=== PATIENT | female | born 1955 | race Caucasian/White ===

== ENCOUNTER 2019-10-30 04:54 | Emergency (ER) | payer SELFPAY ==
[2019-10-30 04:55] VITALS: BP 129/66; PULSE 87; RESP 16; TEMP 36.5; O2SAT 96; BMI 24.4
--- NOTE | 2019-10-30 05:02 | EKG12_ITS ---
Test Reason : DYSRHYTHMIA Blood Pressure : / mmHG Vent. Rate : 086 BPM Atrial Rate : 086 BPM P-R Int : 170 ms QRS Dur : 090 ms QT Int : 396 ms P-R-T Axes : 063 016 045 degrees QTc Int : 473 ms Normal sinus rhythm Normal ECG Confirmed by AMARIS VALLES, QUINTON ([id number]), primer expeditor and drier RYANNE LLANES ([id number]) on 11/03/2019 11:10:52 AM Referred By: TYRELL Confirmed By:QUINTON GLEZ MD
--- NOTE | 2019-10-30 05:03 | ED.DCSUM_ITS ---
History of Present Illness Chief Complaint: Dizziness Informant: Patient Onset: Today Current Severity: Moderate Maximum Severity: Moderate Narrative: Patient states she got up to go to the restroom around 3 AM and felt the room was spinning. She laid down on the floor. She has been sweaty and nauseated. She denies chest pain or palpitations. She states she felt fine when she laid down. States that her mother did have it. Symptoms are worsened when she tries to turn her head. - Past Medical History (1) Hypertension Status: Chronic (2) High cholesterol Status: Chronic (3) GERD (gastroesophageal reflux disease) Status: Chronic (4) Diabetes Status: Chronic (5) Irritable bowel syndrome Status: Chronic (6) Anxiety Status: Chronic Past Medical History - Allergies and Home Meds Allergies/Adverse Reactions: Allergies cinnamon [Cinnamon] Allergy (Verified 10/30/19 04:58) Unknown egg Allergy (Verified 10/30/19 04:58) Unknown Primary Care Physician: Bree Hung PA [Primary Care Provider] - Prior records reviewed: Yes Smoking Status: Never smoker Review of Systems General: Denies: Chills, Fever Eyes: Denies: Visual changes - bilaterally ENT: Denies: Bilateral ear pain Cardiovascular: Denies: Chest pain, Palpitations Respiratory: Denies: Dyspnea, Cough Gastrointestinal: Reports: Nausea. Denies: Abdominal pain Genitourinary: Denies: Dysuria Musculoskeletal: Denies: Swelling, Extremity Pain Neurological: Denies: Headache, Parasthesia Hematologic: Denies: Easy bruising, Easy bleeding Allergy: Denies: Uticaria Physical Exam Vital Signs/Narrative: Vital Signs Temp Pulse Resp BP Pulse Ox 10/30/19 04:55 97.7 F L 87 16 129/66 H 96 Inital Vital Signs reviewed: Yes General: Well nourished, Well developed Head: Normocephalic ENT: Moist mucous membranes Neck: Supple Cardiovascular: Regular rate, Regular rhythm Respiratory: No distress, CTA bilaterally Abdomen: Soft, Nontender Skin: Normal color Neurological: Alert, Oriented x3, - - No focal neurologic deficits. Psychological: Normal affect Diagnostic/Tx/Re-eval Laboratory Results 10/30/19 10/30/19 05:05 05:05 WBC 10.9 RBC 4.88 Hgb 14.9 Hct 44.0 MCV 90.2 MCH 30.5 MCHC 33.9 RDW Std Deviation 38.9 RDW Coeff of Cole 11.9 Plt Count 227 MPV 9.2 Immature Gran % (Auto) 0.400 Neut % (Auto) 79.2 H Lymph % (Auto) 11.2 L Limestone % (Auto) 7.8 Eos % (Auto) 1.2 Baso % (Auto) 0.2 Absolute Neuts (auto) 8.6 H Absolute Lymphs (auto) 1.22 Nucleated RBC % 0 Sodium 136 Potassium 2.9 L Chloride 100 Carbon Dioxide 30.0 Anion Gap 6 BUN 14 Creatinine 0.71 Estim Creat Clear Calc 78.87 Est GFR (MDRD) Af Amer 106 Est GFR (MDRD) Non-Af 88 BUN/Creatinine Ratio 19.7 Glucose 227 H Calcium 9.1 - EKG Initial EKG Interpretation: Sinus Rhythm - Sinus at 86 with no acute ischemia. - Medical Decision Making Clinically the patient has peripheral vertigo. She is given Zofran, IV fluids, and p.o. Antivert. On repeat evaluation she is feeling improved. We were able to gradually sit the bed upright. She is able to get up to bedside commode without difficulty. She will be given prescriptions for Zofran, Antivert, and a few days of potassium as her potassium is slightly low at 2.9. She is also given instructions on Sanju maneuvers if needed at home. ED Disposition - Plan for ED Patient: Disposition: Home or Assisted Living Diagnosis: Vertigo Instructions: ED BPV Vertigo Prescriptions: Meclizine HCl [Antivert] 25 mg PO 4X/DAY PRN PRN #20 tab PRN Reason: Dizziness Transmission Status: Pending to [id number] Potassium Chloride [K-Dur] 20 meq PO BID #6 tab Transmission Status: Pending to [facility] Ondansetron [Zofran Odt] 4 mg PO Q8H PRN PRN #10 tab PRN Reason: Nausea Transmission Status: Pending to [facility] Referrals: Bree Hung PA [Primary Care Provider] - 3-5 Days if not improving
[2019-10-30 05:08] LABS: Absolute Lymphocyte Count 1.22 X10^3/uL (0.83-4.51); Absolute Neutrophil Count 8.6 X10^3/uL (2.0-7.7); Basophil# 0.02 X10^3/uL; Basophil% 0.2 % (0-1); Eosinophil# 0.13 X10^3/uL; Eosinophils% 1.2 % (0-5); Hemoglobin 14.9 g/dL (12.0-15.0); Lymphocyte # 1.22 X10^3/ul (4.0); Lymphocyte % 11.2 % (19-41); Mean Corp Hgb Conc 33.9 g/dL (32-36); Mean Corpuscular Hgb 30.5 pg (27.0-32.0); Mean Corpuscular Volume 90.2 fL (81-99); Mean Platelet Vol. 9.2 fl (6.2-12.0); Monocyte# 0.85 X10^3/uL; Monocyte% 7.8 % (0-10); NRBC Flagged by Analyzer 0 % (0-5); Neutrophil % 79.2 % (47-70); Platelet Count 227 K/mm3 (150-450); RBC Distribution Width CV 11.9 % (11.6-14.6); RBC Distribution Width SD 38.9 fl (35.1-43.9); Red Blood Count 4.88 M/mm3 (4.2-5.4); White Blood Count 10.9 K/mm3 (4.4-11.0)
[2019-10-30] MEDS: 0.9% Normal Saline 1,000 ML 150 ML IV (05:09)
[2019-10-30] MEDS: Ondansetron 4 MG/2 ML Vial IV (05:09)
[2019-10-30] MEDS: Meclizine HCl 25 MG Tablet PO (05:12)
[2019-10-30 05:25] LABS: Anion Gap 6 (5-15); BUN 14 mg/dL (7-18); BUN/Creat Ratio 19.7 RATIO (10-20); Calcium,Total 9.1 mg/dL (8.5-10.1); Chloride 100 mmol/L (98-107); Creatinine, Serum 0.71 mg/dL (0.55-1.02); EST Glomerular Filtration Rate 88 mL/min (>60); Est Glom Filt Rate - Afr Amer 106 mL/min (>60); Estimated Creatinine Clearance 78.87 ml/min; Glucose 227 mg/dL (74-106); Potassium 2.9 mmol/L (3.5-5.1); Sodium Level 136 mmol/L (136-145)
[2019-10-30 07:09] VITALS: BP 102/59; PULSE 76; RESP 19; O2SAT 99
[2019-10-30 07:48] VITALS: BP 106/65
== END 2019-10-30 07:49 | disposition home or self-care (01) ==
PROVIDERS: Emergency Provider Emergency Medicine; PCP Physician Assistant
DX: R42 Dizziness and giddiness (principal); E11.9 Type 2 diabetes mellitus without complications; I10 Essential (primary) hypertension; K21.9 Gastro-esophageal reflux disease without esophagitis; E78.00 Pure hypercholesterolemia, unspecified; Z79.84 Long term (current) use of oral hypoglycemic drugs
CPT/HCPCS: 80048; 85025; 93005; 96361; 96374; 99285; J7030; A4216; J2405

== ENCOUNTER 2022-07-21 16:11 | Emergency (ER) | payer MEDICARE, SELFPAY ==
[2022-07-21 16:11] VITALS: BP 166/92; PULSE 92; RESP 16; TEMP 36.6; O2SAT 96; BMI 24.1
--- NOTE | 2022-07-21 16:32 | EKG12_ITS ---
Test Reason : ANXIETY Blood Pressure : / mmHG Vent. Rate : 073 BPM Atrial Rate : 073 BPM P-R Int : 156 ms QRS Dur : 096 ms QT Int : 388 ms P-R-T Axes : 039 -12 025 degrees QTc Int : 427 ms Normal sinus rhythm with sinus arrhythmia Incomplete right bundle branch block Borderline ECG Confirmed by GEMINI VALLES, OVIDIO ([id number]), television news video editor RYANNE LLANES ([id number]) on 07/23/2022 9:47:23 AM Referred By: Confirmed By:GINETTE SINGLETARY MD
--- NOTE | 2022-07-21 16:37 | EX.ED.DYSGE1 ---
HPI <JOSE Patterson - Last Filed: 07/21/22 17:11> History of Present Illness Chief Complaint: Anxiety Narrative Narrative: 66-year-old female with past medical history of anxiety presents with a few weeks of increased anxiety. She states a couple months ago she stopped all of her medications including Effexor for anxiety. She was weaned off from her doctor and has been taking [id number] supplements instead. She feels better and the dizziness she was having resolved but her anxiety has been increasing. She has had a lot of personal and professional stress. She has no suicidal or homicidal ideation. Last night she took a dose of Effexor that she still had on hand. She also reports having some heart fluttering or tightness. No chest pressure or pain. No shortness of breath. PFSH <JOSE Patterson - Last Filed: 07/21/22 17:11> PENDING SALE TO [facility] Home Medications Fish Oil 1,000 mg Capsule 2 tab PO DAILY 02/17/13 [History Last Taken Unknown] Venlafaxine Hcl 75 mg PO DAILY 02/17/13 [History Last Taken Unknown] ascorbic acid (vitamin C) 500 mg tablet (Vitamin C) 1,000 mg PO DAILY@0800 02/17/13 [History Last Taken Unknown] calcium carbonate 500 mg calcium (1,250 mg) tablet (Oyster Shell Calcium 500) 500 mg PO DAILY@0800 02/17/13 [History Last Taken Unknown] ergocalciferol (vitamin D2) 10 mcg (400 unit) tablet 1 unit PO DAILY 02/17/13 [History Last Taken Unknown] hydrochlorothiazide 25 mg tablet 25 mg PO DAILY 02/17/13 [History Last Taken Unknown] lisinopril 20 mg tablet 10 mg PO DAILY 02/17/13 [History Last Taken 04/23/13 07:30] multivitamin with folic acid 400 mcg tablet (Thera) 1 tab PO DAILY 02/17/13 [History Last Taken Unknown] omeprazole 20 mg capsule,delayed release 20 mg PO DAILY 02/17/13 [History Last Taken 04/23/13 07:30] potassium 99 mg tablet 99 mg PO DAILY 02/17/13 [History Last Taken Unknown] pravastatin 20 mg tablet 40 mg PO DAILY 02/17/13 [History Last Taken Unknown] meclizine 25 mg tablet 25 mg PO 4X/DAY PRN PRN Dizziness #20 tabs 10/30/19 [Rx Last Taken Unknown] metformin 500 mg tablet 500 mg PO BIDCM 10/30/19 [History Last Taken Unknown] ondansetron 4 mg disintegrating tablet 4 mg PO Q8H PRN PRN Nausea #10 tabs 10/30/19 [Rx Last Taken Unknown] potassium chloride 20 mEq tablet,extended release(part/cryst) 20 meq PO BID #6 tabs 10/30/19 [Rx Last Taken Unknown] Social History Smoking Status: Never smoker ROS <JOSE Patterson - Last Filed: 07/21/22 17:11> ROS ED ROS Narrative Constitutional: Negative for fever, chills, malaise. CVS: Negative for chest pain, syncope. Respiratory: Negative for shortness of breath. GI: Negative for abdominal pain, nausea, vomiting. Neuro: Negative for headache. EXAM <JOSE Patterson - Last Filed: 07/21/22 17:11> Physical Exam Narrative Exam Narrative: CONST: Patient sitting in no acute distress. EYES: Normal inspection. ENT: Normal inspection, moist mucous membranes. No carotid bruits. NECK: Normal inspection. RESP: No respiratory distress, CTAB. CVS: Regular rate and rhythm, no murmur, no gallop. SKIN: Color normal, no rash, warm, dry, intact. EXTREMITIES: Normal appearance, no pedal edema. NEURO: Oriented x4. PSYCH: Patient mildly anxious. Const Vital Signs: 07/21/22 16:11 Temperature 97.9 F Temperature Source Temporal Pulse Rate 92 Respiratory Rate 16 Blood Pressure 166/92 H Blood Pressure Mean 116 Pulse Ox 96 Oxygen Delivery Method Room Air <Phuc Deras MD - Last Filed: 07/21/22 18:07> Physical Exam Const Vital Signs: 07/21/22 16:11 Temperature 97.9 F Temperature Source Temporal Pulse Rate 92 Respiratory Rate 16 Blood Pressure 166/92 H Blood Pressure Mean 116 Pulse Ox 96 Oxygen Delivery Method Room Air MDM <JOSE Patterson - Last Filed: 07/21/22 17:11> MDM MDM Narrative Medical decision making narrative: History gathered: from patient and spouse Patient has been off of her Effexor for about a year but has had increased recent stressors and anxiety. She appears well and nontoxic. Mildly hypertensive with otherwise normal vital signs. Her exam is unremarkable. EKG is sinus rhythm at 73 bpm with no ectopy or ischemic changes. Patient was treated with one-time dose of oral Ativan with improvement. She has restarted Effexor and taken 2 doses and I told her it will take about 2 weeks to start having a noticeable effect. I provided a referral to a counseling center. I do not feel she needs further emergent work-up with labs etc. but can follow-up with her primary care doctor. She is not suicidal or homicidal so does not require psychiatric admission. She has good outside support. She was agreeable with this plan and discharged in stable condition. Differential: Anxiety, dysrhythmia EKG Initial EKG: Attestation: I personally reviewed and interpreted this EKG as follows: Comments: ED attending interpretation of EKG is normal sinus rhythm with sinus arrhythmia at 73 bpm, no acute ischemic changes or ectopy <Phuc Deras MD - Last Filed: 07/21/22 18:07> [facility] MDM Narrative Medical decision making narrative: History gathered: from patient and spouse Patient has been off of her Effexor for about a year but has had increased recent stressors and anxiety. She appears well and nontoxic. Mildly hypertensive with otherwise normal vital signs. Her exam is unremarkable. EKG is sinus rhythm at 73 bpm with no ectopy or ischemic changes. Patient was treated with one-time dose of oral Ativan with improvement. She has restarted Effexor and taken 2 doses and I told her it will take about 2 weeks to start having a noticeable effect. I provided a referral to a counseling center. I do not feel she needs further emergent work-up with labs etc. but can follow-up with her primary care doctor. She is not suicidal or homicidal so does not require psychiatric admission. She has good outside support. She was agreeable with this plan and discharged in stable condition. Differential: Anxiety, dysrhythmia I have personally performed a face to face assessment of the patient and have reviewed the TIFFANI Note. I performed a substantive portion of the visit including all aspects of the following. My burr findings include: History is anxiety, not taking Effexor times months secondary to wanting to be homeopathic natural. Exam is afebrile. Vital signs noted. Regular rate and rhythm. Lungs clear to auscultation bilaterally. No suicidal ideation, homicidal ideation, or active hallucination. Medical Decision Making patient states she may have felt her heart racing. EKG was obtained and interpreted by myself as normal sinus rhythm at 73 bpm without ectopy or acute ST changes. No STEMI. She was given 1 dose of benzodiazepine here in the emergency department and told to continue her Effexor, noting that it may take her 2 weeks to get back to its full efficacy. She was referred to the counseling center, or she can see her own counselor. Disposition is discharged home in stable condition. Other additions or changes: [None] Discharge Plan Triage Chief Complaint: Anxiety ED Midlevel Provider: Sabina Watson ED Provider: Phuc Deras Dx/Rx/DC Orders Clinical Impression: Anxiety Instructions: Anxiety Disorders Tx Prescriptions: No Action lisinopril 20 MG tablet 10 mg PO DAILY ergocalciferol (vitamin D2) 400 UNIT tablet 1 unit PO DAILY potassium 99 MG tablet 99 mg PO DAILY calcium carbonate [Oyster Shell Calcium 500] 500 MG tablet 500 mg PO DAILY@0800 ascorbic acid (vitamin C) [Vitamin C] 500 MG tablet 1,000 mg PO DAILY@0800 omeprazole 20 MG capsule 20 mg PO DAILY pravastatin 20 MG tablet 40 mg PO DAILY hydrochlorothiazide 25 MG tablet 25 mg PO DAILY multivitamin with folic acid [Thera] 1 TABLET tablet 1 tab PO DAILY Fish Oil 1,000 mg Capsule 2 tab PO DAILY Venlafaxine Hcl 75 MG tablet 75 mg PO DAILY metformin 500 MG tablet 500 mg PO BIDCM ondansetron 4 MG tablet 4 mg PO Q8H PRN PRN (Reason: Nausea) Qty: 10 0RF meclizine 25 MG tablet 25 mg PO 4X/DAY PRN PRN (Reason: Dizziness) Qty: 20 0RF potassium chloride 20 MEQ tablet 20 meq PO BID Qty: 6 0RF Primary Care Provider: Bree Hung Referrals: Counseling,Center [Group of Physicians] - Bree Hung PA [Primary Care Provider] - Activity Restrictions/Additional Instructions: For your anxiety I recommend restarting the Effexor and following up with the counseling center. Your Effexor can take 2 weeks to start having an effect. Please follow-up with your primary care doctor as well. Disposition Disposition: Home, Self Care Discharge Date/Time: 07/21/22 17:13
[2022-07-21] MEDS: LORazepam 1 MG Tablet PO (16:53)
== END 2022-07-21 17:13 | disposition home or self-care (01) ==
PROVIDERS: Emergency Provider Emergency Medicine; PCP Physician Assistant; Visit Provider Emergency Medicine
DX: F41.9 Anxiety disorder, unspecified (principal)
CPT/HCPCS: 93005; 99282

== ENCOUNTER → 2023-03-05 | Outpatient (CLI) | payer MEDICARE, SELFPAY ==
--- NOTE | 2023-03-05 07:28 | US_ITS ---
STUDY: ABDOMINAL ULTRASOUND - RIGHT UPPER QUADRANT REASON FOR VISIT: Female, 67 years old ELEVATED LIVER enzymes TECHNIQUE: Ultrasound evaluation of the right upper quadrant was performed with real-time and static howard-scale imaging. TECHNICAL QUALITY: Adequate. COMPARISON: None. FINDINGS: Liver: The liver measures 12.9 cm. There is normal echogenicity of the liver. The bile ducts are within normal limits. There is hepatic color flow. The direction of portal flow is hepatopetal. There is no demonstrated mass lesion. Gallbladder: Normal distended gallbladder. The gallbladder wall measures 1.3 mm. There is a negative sonographic Prajapati''s sign. There is no pericholecystic fluid. There are no gallstones. Common Bile Duct (C.B.D.): The common bile duct measures 2.1 mm. Pancreas: Normal size of the head, body and tail of the pancreas. There is increased echogenicity of the pancreas. There is no demonstrated pancreatic mass or cyst. Right Kidney: Normal size of the right kidney. The right kidney measures 10.9 cm x 5.5 cm x 4.8 cm. Normal renal cortex. The right cortex measures 1.4 cm. There is no demonstrated renal mass or cyst. There is no right hydronephrosis. US/Abdomen Limited IMPRESSION: Normal right upper quadrant ultrasound examination. Electronically Signed: Manuel Lilly MD at 14:32 EDT ,
[2023-03-05 09:29] LABS: Cholesterol 213 mg/dL (200); High Density Lipoprotein 62 mg/dL; Triglycerides 141 mg/dL; Very Low Density Lipoprotein 28 mg/dL (5-40)
== END | disposition home or self-care (01) ==
PROVIDERS: PCP Physician Assistant; Referring Provider Physician Assistant; Visit Provider Physician Assistant
DX: R74.8 Abnormal levels of other serum enzymes (principal); Z13.220 Encounter for screening for lipoid disorders
CPT/HCPCS: 36415; 76705; 80061

== ENCOUNTER 2023-05-03 12:21 | Outpatient (CLI) | payer MEDICARE, SELFPAY ==
--- NOTE | 2023-05-03 | IMM_PTH ---
PATHOLOGY RESULTS PATIENT: BRICE DELEON LOC: [facility] U#:[id number] AGE/SX: 67/F ROOM: RE05/03/[address]: Dr. Paulina Cooper MD : [id number] BED: DIS: 05/03/2023 SPEC #: [id number] RECD: 05/08/23 14:40 STATUS: ELAINE REQ #: [id number] ADRIÁN: 05/03/23 00:[address]: Paulina Cooper DEPT: IMMUNOHISTOCHEMISTRY RECD BY: Feli Zaragoza ENTERED: 05/08/23 14:41 SP TYPE: IMMUNO OTHR DR: JOSE Ahn Tissues: Right breast, NOS Procedures: SMA (add) CALPONIN-1 (add) CK8 (add) P53 (add) Pankeratin (initial) P40 (add) PHYSICIAN & INSTITUTION [place] [id number] SPECIMEN INFORMATION: Tissue Source: Right breast Clinical Info: Abnormal mammogram, right breast mass Specimen Number: [id number] CPT code: 10523, 67771 x5 METHODOLOGY: Deparaffinized sections of prefer/formalin-fixed tissue or PAP/DQ stained slides are incubated with monoclonal/polyclonal antibodies/oligonucleotide probes. Localization is made via biotin free immunoperoxidase method. Appropriate controls are performed and reacted as expected. Results on target cell population are indicated in the following table: RESULTS: ANTIBODY / CLONE RESULT AE1-3 (AE1/AE3/PCK26) positive CK8 ([id number]) positive Calponin-1 (JW727O) positive Actin (1A4) positive P40 (BC28) positive P53 (DO-7) positive, wild type pattern, dim These tests were developed and their performance characteristics determined by [facility]. They may not have been cleared or approved by the U.[place]. Food and Drug Administration. The FDA has determined that such clearance or approval is not necessary. The above immunohistochemical/dualISH markers are ordered and reviewed by the Pathologist. INTERPRETATION: Right breast at 8 o'clock, ultrasound-guided core biopsy: Consistent with fragments of intraductal papilloma. AM:jaleel 05/09/2023
--- NOTE | 2023-05-03 12:31 | US_ITS ---
ULTRASOUND GUIDED CORE BIOPSY REASON FOR EXAM: Female, 67 years old. Right breast mass PERTINENT HISTORY: Right breast mass. COMPARISON: None. TECHNIQUE: (All elements of maximal sterile barrier technique followed, including US elements as applicable) Under direct sonographic guidance, the surgeon performed core biopsies of the nodule at the 8:00 position of the breast at 3 cm from the nipple. US/US Breast Biopsy 1st Lesion IMPRESSION: Ultrasound guided core biopsy of a mass in the RIGHT breast at 8:00 position in the breast at 3 cm from nipple. without complication. Electronically Signed: Manuel Lilly MD at 9:51 EST ,
--- OUTSIDE RECORDS SUMMARY | 2023-05-03 12:33 | XMS RPT_ITS | CCD ---
Author Name Unknown Address [address] [facility] [address] [place] [address] Organization [facility] Care Team Providers Care Econometrician Name Role Phone Unavailable Primary Care Provider UnavailBree Schneider Primary Care Provider Barron Martinze MD Unavailable [phone] BARRON MARTINEZ Attending Unavailable BARRON MARTINEZ Referring Unavailable HUNG, BREE J Primary Care Unavailable BARRON MARTINEZ Referring Unavailable HUNG, BREE J Primary Care Unavailable BARRON MARTINEZ Attending Unavailable HUNG, BREE J Primary Care Unavailable HUNG, BREE J Primary Care Unavailable HUNG, BREE J Consulting Unavailable HUNG, BREE J Attending Unavailable HUNG, BREE J Admitting Unavailable PROVIDER, UNKNOWN Consulting Unavailable HUNG, BREE J Primary Care Unavailable HUNG, BREE J Consulting Unavailable HUNG, BREE J Attending Unavailable HUNG, BREE J Admitting Unavailable PROVIDER, UNKNOWN Consulting Unavailable Abhilash GOODWIN, Bree J Unavailable Abhilash GOODWIN Bree J Unavailable Hematology Provider Unavailable Unavailable Omayra VALLES, Dr. Saman Beltrán Unavailable General Surgery Provider Unavailable Unavail able Orthopedic Provider Unavailable Unavailable [facility], . [facility] office Unavailable Dr. Ros Marcelo OD Unavailable [phone] [facility] Unavailable [phone] Ozzie Ham MD Unavailable Unavailable Dr. Iraj Mistry MD Unavailable STEVE Frit Burner, Nutrition Counseling Unavailable Anayeli Chanel MD Unavailable Reid VALLES, Abdirahman Beltrán Unavailable Breezy VALLES, Gene Small Unavailable Akshat GOODWIN, Mehnaz Edwards Unavailable [phone] Tommy INSTRUMENTAL MUSICIAN, Mirella Unavailable Cb ESPANA, Asmita Unavailable Ariadna ESPANA, Vannesa L Unavailable Unavail able Vess INSTRUMENTAL MUSICIAN, Nemaihe L Unavailable Unavailable Louie INSTRUMENTAL MUSICIAN, Shelly E Unavailable Unavailable Sylvia ESPANA, Sigrid Y Unavailable Unavailable Rebecca INSTRUMENTAL MUSICIAN, Anayeli M Unavailable Unavailab le Clay INSTRUMENTAL MUSICIAN, Torri Dove Unavailable Unavailab le Wengerd INSTRUMENTAL MUSICIAN, Camille Unavailable Unavailabl e Avoca INSTRUMENTAL MUSICIAN, Danni N Unavailable Unavaila ble Cory INSTRUMENTAL MUSICIAN, Leigh Unavailable Unavailable Shorty ESPANA, Mehnaz Small Unavailable Unavaila ble Mutersbaugh INSTRUMENTAL MUSICIAN, Mitzy K Unavailable Unavai kelsie Davis, Lucia Unavailable Unavailable Gogoi (scribe), Hemanta Unavailable Unavaila ble Vanaman, April A Unavailable Unavailable Ravindra INSTRUMENTAL MUSICIAN, Kylie Unavailable Unavailable Ariadna GOODWIN, Chuck Hill Unavailable Steve NASCIMENTO, Kylie Unavailable Unavailable Matt INSTRUMENTAL MUSICIAN, Burton Unavailable Unavailable Unavailable Unavailable Allergies Allergy Classification Reported Allergen(s) Allergy Type Date of Onset Reaction(s) Facility (2 sources) [facility], [facility].; [facility], [facility]. (2 sources) egg [facility], [facility].; [facility], [facility]. Medications Current Medications Medication Drug Class(es) Dates Sig (Normalized) Sig (Original) Apple Cider Vinegar (4 sources) Completed/Discontinued Medications Medication Drug Class(es) Dates Sig (Normalized) Sig (Original) acetaminophen 500 mg / HYDROcodone bitartrate 5 mg oral tablet (2 sources) Opioid Agonist Start: 08-02-2010 End: 12-26-2010 albuterol 0.83 mg/ml inhalation solution (4 sources) beta2-Adrenergic Agonist Start: 11-22-2010 End: 12-26-2010 Problems Problem Classification Problem Date Documented Da te Episodic/Chronic Acute bronchitis (10 sources) Acute bronchitis; Translations: [Acute bronchitis, unspecified] 02-06-2019 Episodic Administrative/social admission (12 sources) Repeated prescription; Translations: [Encounter for issue of repeat prescription] 08-14-2018 Episodic Allergic reactions (4 sources) Contact dermatitis and other eczema, unspecified cause 06-18-2014 Episodic Anxiety disorders (20 sources) Anxiety; Translations: [Anxiety disorder, unspecified] 04-12-2023 Chronic Chronic obstructive pulmonary disease and bronchiectasis (10 sources) Bronchitis; Translations: [Bronchitis, not specified as acute or chronic] 03-01-2017 Episodic Diabetes mellitus with complications (20 sources) Type 2 diabetes mellitus; Translations: [Type 2 diabetes mellitus with other specified complication] 04-12-2023 Chronic Diabetes mellitus without complication (8 sources) Other abnormal glucose 01-24-2013 Episodic Disorders of lipid metabolism (20 sources) Hyperlipidemia; Translations: [Hyperlipidemia, unspecified] 04-12-2023 Chronic Disorders of teeth and jaw (2 sources) Acute apical periodontitis of pulpal origin 04-01-2013 Episodic Esophageal disorders (20 sources) Gastroesophageal reflux disease without esophagitis; Translations: [Gastro-esophageal reflux disease without esophagitis] 04-12-2023 Chronic Esophageal disorders (2 sources) Esophagitis; Translations: [Esophagitis, unspecified] 03-31-2010 Episodic Essential hypertension (20 sources) Benign hypertension; Translations: [Essential (primary) hypertension] 04-12-2023 Chronic Headache; including migraine (4 sources) Tension-type headache; Translations: [Tension-type headache, unspecified, not intractable] 02-06-2019 Chronic Heart valve disorders (8 sources) Heart murmur; Translations: [Cardiac murmur, unspecified] 04-12-2023 Episodic Immunizations and screening for infectious disease (20 sources) Patient encounter status; Translations: [Encounter for screening for respiratory tuberculosis] 06-15-2015 Episodic Malaise and fatigue (4 sources) Fatigue; Translations: [Other fatigue] 04-12-2023 Episodic Other aftercare (16 sources) Long-term (current) use of other medications 06-18-2014 Episodic Other aftercare (4 sources) Removal of sutures done; Translations: [Encounter for removal of sutures] 10-15-2014 Episodic Other circulatory disease (4 sources) History of transient ischemic attack; Translations: [Personal history of transient ischemic attack (TIA), and cerebral infarction without residual deficits] 04-12-2023 Episodic Other connective tissue disease (14 sources) Fibromyalgia; Translations: [Fibromyalgia] 04-12-2023 Episodic Other connective tissue disease (8 sources) Trigger finger of right hand; Translations: [Trigger finger, unspecified finger] 08-14-2018 Episodic Other connective tissue disease (2 sources) Foot pain; Translations: [Pain in unspecified foot] 10-07-2012 Episodic Other diseases of veins and lymphatics (12 sources) Venous varices; Translations: [Varicose veins of other specified sites] 08-14-2018 Episodic Other ear and sense organ disorders (6 sources) Hearing loss; Translations: [Unspecified hearing loss, unspecified ear] 08-14-2018 Chronic Other gastrointestinal disorders (4 sources) Irritable bowel syndrome; Translations: [Irritable bowel syndrome without diarrhea] 04-12-2023 Chronic Other hematologic conditions (5 sources) Erythrocytosis; Translations: [Secondary polycythemia] 03-14-2023 Episodic Other hematologic conditions (1 source) Secondary polycythemia; Translations: [Erythrocytosis] Onset: Episodic Other liver diseases (20 sources) Elevated liver enzymes level; Translations: [Abnormal levels of other serum enzymes] 04-12-2023 Episodic Other lower respiratory disease (10 sources) Cough; Translations: [Cough] 06-18-2014 Episodic Other non-traumatic joint disorders (4 sources) Hip pain; Translations: [Pain in right hip] 08-14-2018 Episodic Other non-traumatic joint disorders (8 sources) Pain in unspecified knee; Translations: [Pain in joint, lower leg] 08-14-2018 Episodic Other nutritional; endocrine; and metabolic disorders (4 sources) Overweight in adulthood with body mass index of 25 or more but less than 30; Translations: [Body mass index (BMI) 26.0-26.9, adult] 08-14-2018 Episodic Other screening for suspected conditions (not mental disorders or infectious disease) (20 sources) Full blood count abnormal; Translations: [Other specified abnormal findings of blood chemistry] 04-12-2023 Episodic Other skin disorders (4 sources) Actinic keratosis; Translations: [Actinic keratosis] 02-06-2019 Episodic Other skin disorders (6 sources) Sebaceous cyst of skin; Translations: [Sebaceous cyst] 08-14-2018 Episodic Other skin disorders (4 sources) Skin lesion; Translations: [Disorder of the skin and subcutaneous tissue, unspecified] 08-14-2018 Episodic Other skin disorders (2 sources) Skin tag; Translations: [Other hypertrophic disorders of the skin] 07-22-2013 Episodic Other upper respiratory disease (2 sources) Bleeding from nose; Translations: [Epistaxis] 03-19-2011 Episodic Other upper respiratory infections (10 sources) Sinusitis; Translations: [Chronic sinusitis, unspecified] 06-20-2022 Chronic Other upper respiratory infections (20 sources) Acute pharyngitis; Translations: [Acute pharyngitis, unspecified] 06-18-2014 Episodic Residual codes; unclassified (4 sources) Postmenopausal state; Translations: [Asymptomatic menopausal state] 04-12-2023 Episodic Spondylosis; intervertebral disc disorders; other back problems (10 sources) Neck pain; Translations: [Cervicalgia] 02-15-2023 Episodic Unclassified (2 sources) 02-15-2023 Unclassified (2 sources) 02-15-2023 Unclassified (2 sources) 02-15-2023 Viral infection (4 sources) Viral disease; Translations: [Viral infection, unspecified] 02-06-2019 Episodic Results Test Name Value Interpretation Reference Range Facil ity Vital Signs Date Time Vital Sign Value Performing Clinician Facility 04-12-2023 13:39-0500 Body height 170.18 cm Anayeli Fernandez LPN [employer] 04-12-2023 13:39-0500 Body mass index (BMI) [Ratio] 24.9 kg/m2 Anayeli Fernandez LPN [employer], [email or web address] 04-12-2023 13:39-0500 Body surface area Derived from formula 1.83 m2 Anayeli Fernandez LPN [employer], [email or web address]. 04-12-2023 13:39-0500 Body weight 72.12 kg Anayeli Fernandez LPN [employer], [email or web address].; [employer], [email or web address]. 04-12-2023 13:39-0500 Diastolic blood pressure 75 mm[Hg] [facility].; [employer] [facility]. 04-12-2023 13:39-0500 Heart rate 69 /min Anayeli Fernandez LPN [facility].; [employer] [facility]. 04-12-2023 13:39-0500 Systolic blood pressure 131 mm[Hg] Anayeli benjmain INSTRUMENTAL MUSICIAN [facility].; [employer] [facility]. 02-15-2023 09:09-0400 Body height 170.18 cm Bree J Hung PA-C Work Phone: [employer] 02-15-2023 09:09-0400 Body mass index (BMI) [Ratio] 25.22 kg/m2 Bree J Hung PA-C Work Phone: [employer].; [employer] [facility]. 02-15-2023 09:09-0400 Body surface area Derived from formula 1.84 m2 Bree J Hung PA-C Work Phone: [employer].; [employer] [facility]. 02-15-2023 09:09-0400 Body weight 73.03 kg Bree J Hung PA-C Work Phone: [employer].; [employer] [facility]. 02-15-2023 09:09-0400 Diastolic blood pressure 76 mm[Hg] Bree J Hung PA-C Work Phone: [employer].; [employer] [facility]. 02-15-2023 09:09-0400 Heart rate 66 /min Bree J Hung PA-C Work Phone: [employer].; [employer] [facility]. 02-15-2023 09:09-0400 Systolic blood pressure 151 mm[Hg] Bree J Hung PA-C Work Phone: [employer] 11-05-2022 12:59-0400 Body height 170.18 cm Anayeli Dempseylabach INSTRUMENTAL MUSICIAN [facility], [facility].; [facility], [facility]. 11-05-2022 12:59-0400 Body mass index (BMI) [Ratio] 24.43 kg/m2 Anayeli Dempseylabach [facility], [facility].; [facility], [facility]. 11-05-2022 12:59-0400 Body surface area Derived from formula 1.82 m2 Anayeli Shi Rebecca [facility], [facility].; [facility], [facility]. 11-05-2022 12:59-0400 Body temperature 99.9 [degF] Anayeli Shi Rebecca [facility], [facility].; [facility], [facility]. 11-05-2022 12:59-0400 Body weight 70.76 kg Anayeli Shi Rebecca [facility], [facility].; [facility], [facility]. 11-05-2022 12:59-0400 Diastolic blood pressure 76 mm[Hg] Anayeli Shi Rebecca [facility], [facility].; [place] [employer] [facility], [facility]. 11-05-2022 12:59-0400 Heart rate 101 /min Anayeli Dempseylabach [facility], [facility].; [facility], [facility]. 11-05-2022 12:59-0400 Inhaled oxygen concentration 20 % Anayeli Shi Rebecca [facility], [facility].; [employer] [facility], [facility]. 11-05-2022 12:59-0400 SaO2% (BldA) [Mass fraction] 98 % Anayeli Shi Rebecca [facility], [facility].; [employer] [facility]. 11-05-2022 12:59-0400 Systolic blood pressure 149 mm[Hg] Anayeli Shi Amyac h [facility], [facility].; [employer] [facility], [facility]. 07-25-2022 13:38-0400 Body height 170.18 cm Kylie Wilson MA [facility], [facility].; [employer] [place] [employer] [facility]. 07-25-2022 13:38-0400 Body mass index (BMI) [Ratio] 23.81 kg/m2 Kylie [facility].; [employer] 07-25-2022 13:38-0400 Body surface area Derived from formula 1.8 m2 Kylie Wilson MA [facility], Inc.; [employer] [facility], Inc[facility] 07-25-2022 13:38-0400 Body weight 68.95 kg Kylie Wilson MA [facility], [employer].; [employer] 07-25-2022 13:38-0400 Diastolic blood pressure 77 mm[Hg] Kylie Wilson MA [facility], [facility].; [employer] [facility], Inc[facility] 07-25-2022 13:38-0400 Heart rate 99 /min Kylie Wilson MA [facility], [facility].; [employer] [facility], Inc[facility] 07-25-2022 13:38-0400 Systolic blood pressure 134 mm[Hg] Kylie Wilson MA [facility], [facility].; [employer] [facility], Inc[facility] 06-20-2022 09:05-0500 Body height 170.18 cm Torri Williamson INSTRUMENTAL MUSICIAN [facility], [employer].; [employer] 06-20-2022 09:05-0500 Body mass index (BMI) [Ratio] 24.28 kg/m2 [facility] Clay INSTRUMENTAL MUSICIAN [facility], [facility].; [employer] 06-20-2022 09:05-0500 Body surface area Derived from formula 1.81 m2 Conchita Stuckey INSTRUMENTAL MUSICIAN [facility], Inc.; [employer] 06-20-2022 09:05-0500 Body temperature 98.1 [degF] Conchita Stuckey INSTRUMENTAL MUSICIAN [facility], Inc.; [employer] 06-20-2022 09:05-0500 Body weight 70.31 kg [facility] Clay INSTRUMENTAL MUSICIAN [employer] [place] [employer] [facility], Inc.; [employer] 06-20-2022 09:05-0500 Diastolic blood pressure 82 mm[Hg] Torri Williamson LPN [employer] [facility] [employer] [facility], [employer].; [employer] 06-20-2022 09:05-0500 Heart rate 97 /min Conchita Clay INSTRUMENTAL MUSICIAN [facility], [employer].; [employer], [facility]. 06-20-2022 09:05-0500 Inhaled oxygen concentration 20 % Torri Williamson [facility], [facility].; [employer] [facility], [facility]. 06-20-2022 09:05-0500 SaO2% (BldA) [Mass fraction] 99 % Torri Williamson [facility], Inc.; [employer], [facility]. 06-20-2022 09:05-0500 Systolic blood pressure 181 mm[Hg] Torri Negrete [facility] [employer] [facility], [facility].; [employer], [facility]. 02-16-2022 08:24-0400 Body height 170.[address] [facility] [employer] [facility], Inc.; [employer] 02-16-2022 08:24-0400 Body mass index (BMI) [Ratio] 25.53 kg/m2 Anayeli Fernandez [facility] [employer] [facility], Inc.; [employer], [facility]. 02-16-2022 08:24-0400 Body surface area Derived from formula 1.85 m2 Anayeli Fernandez [facility], [employer] [facility], [facility].; [employer], [email or web address]. 02-16-2022 08:24-0400 Body weight 73.[address] [facility] [employer] [facility], [facility].; [employer], [email or web address]. 02-16-2022 08:24-0400 Diastolic blood pressure 82 mm[Hg] Anayeli Fernandez [facility] [employer] [facility], Inc.; [employer], [email or web address]. 02-16-2022 08:24-0400 Heart rate 91 /min Anayeli Fernandez [facility], [employer] [facility], [facility].; [employer], [email or web address]. 02-16-2022 08:24-0400 Systolic blood pressure 136 mm[Hg] Anayeli Reyesac h [facility] [employer] [facility], [facility].; [employer] 01-17-2022 08:33-0400 Body height 170.[address] [facility] [employer] [facility], [facility].; [employer]. 01-17-2022 08:33-0400 Body mass index (BMI) [Ratio] 26 kg/m2 Anayeli Shi Rebecca [facility], [facility].; [employer] [facility]. 01-17-2022 08:33-0400 Body surface area Derived from formula 1.87 m2 Anayeli Shi Rebecca [facility], [facility].; [facility]. 01-17-2022 08:33-0400 Body weight 75.3 kg Anayeli Shi Rebecca [facility], [facility].; [facility]. 01-17-2022 08:33-0400 Diastolic blood pressure 79 mm[Hg] Anayeli Dempseylabach [facility] [employer] [facility].; [facility]. 01-17-2022 08:33-0400 Heart rate 77 /min Anayeli Shi Rebecca [facility].; [employer] [facility]. 01-17-2022 08:33-0400 Systolic blood pressure 145 mm[Hg] Anayeli Shi Amyac h [facility] [employer] [facility].; [employer] [facility]. 07-19-2021 08:59-0400 Body height 170.18 cm Bree Jon Hung PA-C Work Phone: [employer].; [employer] [facility]. 07-19-2021 08:59-0400 Body mass index (BMI) [Ratio] 25.22 kg/m2 Bree Jon Hung PA-C Work Phone: [employer].; [employer] [facility]. 07-19-2021 08:59-0400 Body surface area Derived from formula 1.84 m2 Bree Jon Hung PA-C Work Phone: [employer].; [employer] [facility]. 07-19-2021 08:59-0400 Body weight 73.03 kg Bree J Hung PA-C Work Phone: [employer].; [employer]. 07-19-2021 08:59-0400 Diastolic blood pressure 82 mm[Hg] Bree Jon Hung PA-C Work Phone: [facility].; [facility]. 07-19-2021 08:59-0400 Heart rate 65 /min Bree Hung PA-C Work Phone: [facility] [employer].; [facility] [employer] 07-19-2021 08:59-0400 Systolic blood pressure 146 mm[Hg] Bree Hung PA-C Work Phone: [facility].; [place] [employer] [facility]. 02-28-2021 13:09-0400 Body height 170.18 cm Kylie Waite LPN [facility].; [facility], [facility]. 02-28-2021 13:09-0400 Body mass index (BMI) [Ratio] 23.96 kg/m2 Kylie Waite LPN [facility], [facility].; [facility], [facility]. 02-28-2021 13:09-0400 Body surface area Derived from formula 1.8 m2 Kylie Waite LPN [facility].; [employer], [facility]. 02-28-2021 13:09-0400 Body temperature 97.2 [degF] Kylie Waite LPN [facility], [facility].; [employer] [facility], [facility]. 02-28-2021 13:09-0400 Body weight 69.4 kg Kylie Waite LPN [facility], [facility].; [employer] [facility], [facility]. 02-28-2021 13:09-0400 Diastolic blood pressure 77 mm[Hg] Kylie Waite LPN [facility], [facility].; [employer], [facility]. 02-28-2021 13:09-0400 Heart rate 71 /min Kylie Waite LPN [facility], [facility].; [facility], [facility]. 02-28-2021 13:09-0400 Inhaled oxygen concentration 20 % Kylie Waite LPN [facility].; [employer], [email or web address]. 02-28-2021 13:09-0400 SaO2% (BldA) [Mass fraction] 99 % Kylie Waite LPN [facility].; [facility], [facility]. 02-28-2021 13:09-0400 Systolic blood pressure 127 mm[Hg] Kylie Waite LPN [facility], [facility].; [place] [employer] [facility], [facility]. 08-22-2020 08:12-0400 Body height 170.18 cm Anayeli Shi Rebecca INSTRUMENTAL MUSICIAN [facility], Inc.; [employer] 08-22-2020 08:12-0400 Body mass index (BMI) [Ratio] 25.22 kg/m2 Anayeli Shi Rebecca [facility], Inc.; [employer], [facility]. 08-22-2020 08:12-0400 Body surface area Derived from formula 1.84 m2 Anayeli M Rebecca [facility] [employer] [facility], Inc.; [employer], [facility]. 08-22-2020 08:12-0400 Body weight 73.03 kg Anayeli Yuridia ReyesRebecca [facility] [employer] [facility], Inc.; [employer] [facility]. 08-22-2020 08:12-0400 Diastolic blood pressure 77 mm[Hg] Anayeli Yuridia DempseyRebecca INSTRUMENTAL MUSICIANAdventhealth Winter GardenNanorex [facility].; [employer] [facility], [facility]. 08-22-2020 08:12-0400 Heart rate 77 /min Anayeli Yuridia ReyesRebecca [facility] [employer] [facility], [facility].; [employer] [facility], [facility]. 08-22-2020 08:12-0400 Systolic blood pressure 119 mm[Hg] Anayeli Yuridia Zheng h [facility], [facility].; [employer] [facility] HospitalNan[facility]x [facility]. 02-22-2020 09:18-0400 Body height 170.18 cm Anayeli M Rebecca INSTRUMENTAL MUSICIAN [facility], [facility].; [employer] [facility]. 02-22-2020 09:18-0400 Body mass index (BMI) [Ratio] 24.9 kg/m2 [facility]eli [facility]idia [facility], [facility].; [employer], [facility]. 02-22-2020 09:18-0400 Body surface area Derived from formula 1.83 m2 Anayeli Yuridia Rebecca INSTRUMENTAL MUSICIAN [place] [employer] [facility], Inc.; [employer] [facility]. 02-22-2020 09:18-0400 Body weight 72.12 kg Anayeli Reyesmikel [facility] [employer] [facility], Inc.; [employer], Inc. 02-22-2020 09:18-0400 Diastolic blood pressure 80 mm[Hg] Anayeli Fernandez [facility] [employer] [facility], Inc.; [employer], Inc. 02-22-2020 09:18-0400 Heart rate 70 /min Anayeli Dempseylabach [facility], Inc.; [employer], Inc. 02-22-2020 09:18-0400 Systolic blood pressure 126 mm[Hg] Anayeli Dempseyzelalemphan h [facility] [employer] [facility], Inc.; [employer], Inc. 08-24-2019 08:02-0400 Body height 170.[address] [facility] [employer] [facility], Inc.; [employer], Inc. 08-24-2019 08:02-0400 Body mass index (BMI) [Ratio] 25.22 kg/m2 Torri Williamson [facility], Inc.[employer] [facility], Inc.; [employer], Inc. 08-24-2019 08:02-0400 Body surface area Derived from formula 1.84 m2 Torri Williamson [facility], Inc.Thinknum, Inc.; [employer], [employer]. 08-24-2019 08:02-0400 Body temperature 98.5 [degF] Torri Williamson [facility], Inc.[employer] [facility], Inc.; [employer], Inc. 08-24-2019 08:02-0400 Body weight 73.03 kg Torri Williamson [facility], Inc.[employer] [facility], Inc.; [employer], Inc. 08-24-2019 08:02-0400 Diastolic blood pressure 78 mm[Hg] Torri Williamson INSTRUMENTAL MUSICIANM[facility] CenterThinknum, Inc.; [employer], Inc. 08-24-2019 08:02-0400 Systolic blood pressure 118 mm[Hg] Torri Negrete [facility], Inc.[employer] [facility], Inc.; [employer], Inc. 02-09-2019 08:05-0400 Body height 170.18 cm Camille Zaldivar [facility], Inc.[employer] [facility], Inc.; [employer], Inc. 02-09-2019 08:05-0400 Body mass index (BMI) [Ratio] 25.69 kg/m2 Camille Cheemaerik CHAPIN [employer].; [employer]. 02-09-2019 08:05-0400 Body surface area Derived from formula 1.86 m2 Camille Cheemaerik CHAPIN [place] [employer], Inc.; [employer] 02-09-2019 08:050400 Body weight 74.39 kg Camille Weerik MARKSMountain View Regional Medical CenterViaCyte.; [employer]. 02-09-2019 08:05-0400 Diastolic blood pressure 73 mm[Hg] Camille Cheemaerik [facility], Inc.[employer].; [employer]. 02-09-2019 08:05-0400 Heart rate 73 /min Camille Cheemaerik [facility], Inc.[employer].; [employer]. 02-09-2019 08:05-0400 Systolic blood pressure 107 mm[Hg] Camille Cheemaerik MARKSMountain View Regional Medical CenterNaked Wines Inc.; [employer]. 01-08-2019 16:19-0400 Body height 170.18 cm Bree Hung PA-C Work Phone: [employer].; [employer]. 01-08-2019 16:19-0400 Body mass index (BMI) [Ratio] 25.84 kg/m2 Bree Hung PA-C Work Phone: [employer].; [employer]. 01-08-2019 16:19-0400 Body surface area Derived from formula 1.86 m2 Bree Hung PA-C Work Phone: [employer].; [employer]. 01-08-2019 16:19-0400 Body temperature 98.8 [degF] Bree Uhng PA-C Work Phone: [employer].; [employer]. 01-08-2019 16:19-0400 Body weight 74.84 kg Bree Hung PA-C Work Phone: [employer].; [employer]. 01-08-2019 16:19-0400 Diastolic blood pressure 84 mm[Hg] Bree Hung PA-C Work Phone: [employer].; [employer]. 01-08-2019 16:19-0400 Heart rate 102 /min Bree Hung PA-C Work Phone: [employer].; [employer]. 01-08-2019 16:19-0400 Inhaled oxygen concentration 20 % Bree Hung PA-C Work Phone: [employer].; [employer]. 01-08-2019 16:19-0400 SaO2% (BldA) [Mass fraction] 97 % Bree Hung PA-C Work Phone: [employer].; [employer]. 01-08-2019 16:19-0400 Systolic blood pressure 129 mm[Hg] Bree Olivarezer P A-C Work Phone: [employer].; [employer]. 08-15-2018 09:05-0400 Body height 170.18 cm Bree J Hung PA-C Work Phone: [employer].; [employer]. 08-15-2018 09:05-0400 Body mass index (BMI) [Ratio] 26.63 kg/m2 Bree J Hung PA-C Work Phone: [employer].; [employer]. 08-15-2018 09:05-0400 Body surface area Derived from formula 1.89 m2 Bree J Hung PA-C Work Phone: [employer].; [employer]. 08-15-2018 09:05-0400 Body weight 77.11 kg Bree J Hung PA-C Work Phone: [employer].; [employer]. 08-15-2018 09:05-0400 Diastolic blood pressure 64 mm[Hg] Bree Hung PA-C Work Phone: [employer].; [employer], [employer]. 08-15-2018 09:05-0400 Heart rate 76 /min Bree Webb Hung PA-C Work Phone: [employer] Inc.; [employer], [employer]. 08-15-2018 09:05-0400 Systolic blood pressure 123 mm[Hg] Bree Hung PA-C Work Phone: [employer].; [employer], [employer]. 02-05-2018 10:13-0400 Body height 170.18 cm Camille Zaldivar LPN [employer]Thinknum, Inc.; [employer], [employer]. 02-05-2018 10:13-0400 Body mass index (BMI) [Ratio] 26.31 kg/m2 Camille Zaldivar LPN [employer]Think[employer], Inc.; [employer], [employer]. 02-05-2018 10:13-0400 Body surface area Derived from formula 1.88 m2 Camille Zaldivar LPN [employer]Think[employer], Inc.; [employer], Inc. 02-05-2018 10:13-0400 Body weight 76.2 kg Camille Zaldivar LPN [employer]Think[employer], Inc.; [employer], [employer]. 02-05-2018 10:13-0400 Diastolic blood pressure 86 mm[Hg] Camille Zaldivar LPN [employer]Think[employer], Inc.; [employer], [employer]. 02-05-2018 10:13-0400 Heart rate 77 /min Camille Zaldivar LPN [employer], Inc.; [employer], [employer]. 02-05-2018 10:13-0400 Systolic blood pressure 119 mm[Hg] Camille Zaldivar LPN [employer], Inc.; [employer], [employer]. 08-28-2017 09:110400 Body height 172.72 cm Camille Zaldivar LPN [employer], Inc.; [employer], [employer]. 08-28-2017 09:11-0400 Body mass index (BMI) [Ratio] 26.05 kg/m2 Camille Zaldivar LPN MezaEasyProperty [facility], Inc.; [employer], Inc. 08-28-2017 09:110400 Body surface area Derived from formula 1.91 m2 Camille Zaldivar LPN [employer], Inc.; [employer], [employer]. 08-28-2017 09:110400 Body weight 77.71 kg Camille Zaldivar LPN [employer], Inc.; [employer], [employer]. 08-28-2017 09:110400 Diastolic blood pressure 78 mm[Hg] Camille Zaldivar LPN [employer], Inc.; [employer], [employer]. 08-28-2017 09:110400 Heart rate 83 /min Camille Zaldivar LPN [employer], Inc.; [employer], [employer]. 08-28-2017 09:11-0400 Systolic blood pressure 115 mm[Hg] Camille Zaldivar LPN [employer], Inc.; [employer], [employer]. 03-01-2017 09:0400 Body height 172.72 cm Camille Zaldivar LPN [employer], Inc.; [employer], [employer]. 03-01-2017 09:01-0400 Body mass index (BMI) [Ratio] 25.39 kg/m2 Camille Zaldivar LPN [employer], Inc.; [employer], [employer]. 03-01-2017 09:0400 Body surface area Derived from formula 1.89 m2 Camille Zaldivar LPN [employer]Think[employer], Inc.; [employer], [employer]. 03-01-2017 09:0400 Body weight 75.75 kg Camille Zaldivar LPN [employer]Think[employer], Inc.; [employer], Inc. 03-01-2017 09:01-0400 Diastolic blood pressure 75 mm[Hg] Camille Zaldivar LPN [employer], Inc.; [employer], [employer]. 03-01-2017 09:-0400 Heart rate 71 /min Camille Zaldivar LPN [employer], Inc.; [employer], [employer]. 03-01-2017 09:01-0400 Systolic blood pressure 111 mm[Hg] Camille Zen CHAPIN [employer], Inc.; [employer], Inc. 11-29-2016 11:36-0400 Body height 172.72 cm Camille Zaldivar LPN [place] [employer], [employer].; [employer], [employer]. 11-29-2016 11:36-0400 Body mass index (BMI) [Ratio] 25.85 kg/m2 Camille Zaldivar LPN [employer], Inc.; [employer], [employer]. 11-29-2016 11:36-0400 Body surface area Derived from formula 1.91 m2 Camille Zaldivar LPN [place] [employer], [employer].; [employer], [employer]. 11-29-2016 11:36-0400 Body weight 77.11 kg Camille Zaldivar LPN [employer], Inc.; [employer], [employer]. 11-29-2016 11:36-0400 Diastolic blood pressure 62 mm[Hg] Camille Zaldivar LPN [employer], Inc.; [employer], [employer]. 11-29-2016 11:36-0400 Heart rate 80 /min Camille Zaldivar LPN [employer], Inc.; [employer], [employer]. 11-29-2016 11:36-0400 Systolic blood pressure 109 mm[Hg] Camille Zaldivar LPN [employer], Inc.; [employer], [employer]. 08-30-2016 16:120400 Body height 172.72 cm Camille Zaldivar LPN [employer], Inc.; [employer], [employer]. 08-30-2016 16:12-0400 Body mass index (BMI) [Ratio] 26.15 kg/m2 Camille Zaldivar LPN [employer], Inc.; [employer], [employer]. 08-30-2016 16:12-0400 Body surface area Derived from formula 1.92 m2 Camille Zaldivar LPN [employer], Inc.; [employer], [employer]. 08-30-2016 16:12-0400 Body weight 78.02 kg Camille Cheemaerik MARKSM[facility] Medical CenterThinknum, Inc.; [employer], Inc. 08-30-2016 16:12-0400 Diastolic blood pressure 77 mm[Hg] Camille Weerik [facility], Inc.Think[employer], Inc.; [employer], Inc. 08-30-2016 16:12-0400 Heart rate 78 /min Camille Zen [facility], Inc.Think[employer], Inc.; [employer], Inc. 08-30-2016 16:12-0400 Systolic blood pressure 124 mm[Hg] Camille Cheemaerik MARKSMountain [facility] Medical CenterThinknum, Inc.; [employer], Inc. 07-24-2016 09:36-0400 Body temperature 98.2 [degF] Tatailee L Vess INSTRUMENTAL MUSICIAN [employer], Inc.; [employer], [employer]. 07-24-2016 09:36-0400 Body weight 79.83 kg Neilee L Vess [facility], Inc.Think[employer], Inc.; [employer], Inc. 07-24-2016 09:36-0400 Diastolic blood pressure 84 mm[Hg] Neilee L Vess [facility], Inc.Think[employer], Inc.; [employer], Inc. 07-24-2016 09:36-0400 Heart rate 90 /min Tatailee L Vess [facility], Inc.Thinknum, Inc.; [employer], Inc. 07-24-2016 09:36-0400 Systolic blood pressure 141 mm[Hg] Neilee L Vess INSTRUMENTAL MUSICIAN [employer]zaThinknum, Inc.; [employer], Inc. 03-16-2016 15:39-0500 Body height 172.72 cm Danni Talamantes LPN [employer], Inc.; [employer], [email or web address]. 03-16-2016 15:39-0500 Body mass index (BMI) [Ratio] 25.7 kg/m2 Danni Talamantes LPN [employer]Ter[employer], Inc.; [employer], Inc. 03-16-2016 15:39-0500 Body surface area Derived from formula 1.9 m2 Danni Talamantes LPN [employer]zaThinknum, Inc.; [employer], [email or web address]. 03-16-2016 15:39-0500 Body weight 76.66 kg Danni Josselyn Talamantes LPN [employer]Via[employer].; [employer]. 03-01-2016 10:030400 Body height 172.72 cm Bree Webb Hung PA-C Work Phone: [employer].; [employer]. 03-01-2016 10:03-0400 Body mass index (BMI) [Ratio] 26.76 kg/m2 Bree Webb Hung PA-C Work Phone: [employer].; [employer]. 03-01-2016 10:03-0400 Body surface area Derived from formula 1.94 m2 Bree Webb Hung PA-C Work Phone: [employer].; [employer]. 03-01-2016 10:030400 Body weight 79.83 kg Bree Webb Hung PA-C Work Phone: [employer].; [employer]. 06-02-2015 15:07-0500 Body height 172.72 cm Mehnaz Oro RN [employer].; [employer]. 06-02-2015 15:07-0500 Body mass index (BMI) [Ratio] 27.51 kg/m2 Mehnaz Oro RN [employer].; [employer]. 06-02-2015 15:07-0500 Body surface area Derived from formula 1.96 m2 Mehnaz Oro RN [employer].; [employer]. 06-02-2015 15:07-0500 Body weight 82.06 kg Mehnaz Oro RN [employer].; [employer]. 06-02-2015 15:07-0500 Diastolic blood pressure 84 mm[Hg] Mehnaz Oro RN [employer].; [employer]. 06-02-2015 15:07-0500 Inhaled oxygen concentration 20 % Mehnaz Oro RN [employer].; [employer] 06-02-2015 15:07-0500 SaO2% (BldA) [Mass fraction] 99 % Mehnaz Oro RN [place] [employer] [facility].; [employer]. 06-02-2015 15:07-0500 Systolic blood pressure 138 mm[Hg] Mehnaz santamaria RN [employer].; [employer]. 10-11-2014 09:220400 Body height 172.72 cm Danni Talamantes LPN [employer].; [employer]. 10-11-2014 09:22-0400 Body mass index (BMI) [Ratio] 26.91 kg/m2 Danni Talamantes LPN [employer].; [employer]. 10-11-2014 09:220400 Body surface area Derived from formula 1.94 m2 Danni Talamantes LPN [employer].; [employer]. 10-11-2014 09:22-0400 Body weight 80.29 kg Danni Talamantes LPN [employer].; [employer]. 10-11-2014 09:22-0400 Diastolic blood pressure 70 mm[Hg] Danni Talamantes LPN [employer].; [employer]. 10-11-2014 09:22-0400 Systolic blood pressure 114 mm[Hg] Danni naik LPN [employer].; [employer]. 09-07-2014 09:190400 Body height 172.72 cm Mehnaz Oro RN [employer].; [employer]. 09-07-2014 09:19-0400 Body mass index (BMI) [Ratio] 26.99 kg/m2 Mehnaz Oro RN [employer].; [employer]. 09-07-2014 09:19-0400 Body surface area Derived from formula 1.94 m2 Mehnaz Oro RN [employer].; [employer]. 09-07-2014 09:19-0400 Body weight 80.51 kg Mehnaz Oro RN [place] [employer] [facility] [employer].; [employer]. 09-07-2014 09:19-0400 Diastolic blood pressure 84 mm[Hg] Mehnaz Oro RN [place] [employer] [facility] [employer].; [employer]. 09-07-2014 09:19-0400 Heart rate 82 /min Mehnaz Oro RN MezaEasyProperty [facility]Th[facility] [employer].; [employer]. 09-07-2014 09:19-0400 Inhaled oxygen concentration 20 % Mehnaz Oro RN [place] [employer] [facility] [employer].; [employer]. 09-07-2014 09:190400 SaO2% (BldA) [Mass fraction] 98 % Mehnaz Oro RN [place] [employer] [facility] [employer].; [employer]. 09-07-2014 09:19-0400 Systolic blood pressure 122 mm[Hg] Mehnaz santamaria RN [employer]zaEasyProperty [facility].; [employer]. 06-18-2014 09:21-0500 Body temperature 96.9 [degF] Camille Zaldivar LPN [employer].; [employer]. 06-18-2014 09:210500 Body weight 78.93 kg Camille Zladivar LPN [employer].; [employer]. 06-18-2014 09:21-0500 Diastolic blood pressure 72 mm[Hg] Camille Zaldivar LPN [employer].; [employer]. 06-18-2014 09:21-0500 Heart rate 89 /min Camille Zaldivar LPN [employer].; [employer]. 06-18-2014 09:21-0500 Inhaled oxygen concentration 20 % Camille Zaldivar LPN [employer].; [employer]. 06-18-2014 09:21-0500 SaO2% (BldA) [Mass fraction] 98 % Camille Zaldivar LPN [employer].; [employer]. 06-18-2014 09:21-0500 Systolic blood pressure 112 mm[Hg] Camille Cheemaerik CHAPIN [place] [employer] [facility] [employer].; [employer], [employer] 01-25-2014 08:19-0400 Body height 171.45 cm Asmita Vivar RN Work Phone: [employer].; [employer], [employer] 01-25-2014 08:19-0400 Body mass index (BMI) [Ratio] 26.54 kg/m2 Asmita Vivar RN Work Phone: [employer].; [employer], [employer] 01-25-2014 08:19-0400 Body surface area Derived from formula 1.91 m2 Asmita Vivar RN Work Phone: [employer].; [employer] 01-25-2014 08:19-0400 Body weight 78.02 kg Asmita Vivar RN Work Phone: [employer].; [employer] 01-25-2014 08:19-0400 Diastolic blood pressure 78 mm[Hg] Asmita Vivar RN Work Phone: [employer].; [employer] 01-25-2014 08:19-0400 Heart rate 82 /min Asmita Vivar RN Work Phone: [employer].; [employer]. 01-25-2014 08:19-0400 Systolic blood pressure 118 mm[Hg] Asmita Arcos Work Phone: [employer].; [employer] 07-22-2013 11:14-0400 Body height 171.45 cm Asmita Vivar RN Work Phone: [employer].; [employer] 07-22-2013 11:14-0400 Body mass index (BMI) [Ratio] 27 kg/m2 Asmita Vivar RN Work Phone: [employer].; [employer] 07-22-2013 11:14-0400 Body surface area Derived from formula 1.92 m2 Asmita Vivar RN Work Phone: [employer].; [employer]. 07-22-2013 11:14-0400 Body weight 79.38 kg Asmita Vivar RN Work Phone: [employer].; [employer]. 07-22-2013 11:14-0400 Diastolic blood pressure 86 mm[Hg] Asmita Vivar RN Work Phone: [employer].; [employer]. 07-22-2013 11:14-0400 Heart rate 68 /min Asmita Vivar RN Work Phone: [employer].; [employer]. 07-22-2013 11:14-0400 Systolic blood pressure 118 mm[Hg] Asmita Arcos Work Phone: [employer].; [employer]. 06-06-2013 11:36-0500 Body temperature 97.7 [degF] Torri Dove [facility] SystemV[facility].; [employer]. 06-06-2013 11:36-0500 Body weight 79.38 kg Torri Williamson [facility], Inc.[employer].; [employer]. 06-06-2013 11:36-0500 Inhaled oxygen concentration 20 % [facility].; [employer]. 06-06-2013 11:36-0500 SaO2% (BldA) [Mass fraction] 98 % [facility]Great [facility] SystemViaCy[facility].; [employer]. 05-26-2013 08:36-0500 Body height 171.45 cm Asmita Vivar RN Work Phone: [employer].; [employer]. 05-26-2013 08:36-0500 Body mass index (BMI) [Ratio] 27 kg/m2 Asmita Vivar RN Work Phone: [employer].; [employer]. 05-26-2013 08:36-0500 Body surface area Derived from formula 1.92 m2 Asmita Vivar RN Work Phone: [employer].; [employer] 05-26-2013 08:36-0500 Body temperature 98.1 [degF] Asmita Vivar RN Work Phone: [employer].; [employer] 05-26-2013 08:36-0500 Body weight 79.38 kg Asmita Vivar RN Work Phone: [employer].; [employer], [employer] 05-26-2013 08:36-0500 Diastolic blood pressure 80 mm[Hg] Asmita Vivar RN Work Phone: [employer].; [employer], [employer] 05-26-2013 08:36-0500 Heart rate 87 /min Asmita Vivar RN Work Phone: [employer].; [employer] 05-26-2013 08:36-0500 Systolic blood pressure 116 mm[Hg] Asmita Arcos Work Phone: [employer].; [employer] 05-14-2013 13:39-0500 Body height 171.45 cm Bree Webb Hung PA-C Work Phone: [employer].; [employer] 05-14-2013 13:39-0500 Diastolic blood pressure 79 mm[Hg] Bree Webb Hung PA-C Work Phone: [employer].; [employer] 05-14-2013 13:39-0500 Heart rate 78 /min Bree Jon Hung PA-C Work Phone: [employer].; [employer] 05-14-2013 13:39-0500 Systolic blood pressure 132 mm[Hg] Bree Webb Hung PA-C Work Phone: [employer].; [employer] 02-02-2013 08:09-0400 Body height 171.45 cm Camille Weerik CHAPIN [facility], [facility].; [employer] [facility], [email or web address]. 02-02-2013 08:09-0400 Body mass index (BMI) [Ratio] 25.98 kg/m2 Camille Weerik [facility], Inc.; [employer], Inc. 02-02-2013 08:09-0400 Body surface area Derived from formula 1.89 m2 Camille Denierik [facility], [facility].; [employer], [email or web address]. 02-02-2013 08:09-0400 Body temperature 97.2 [degF] Camille Weerik [facility], [facility].; [employer], [email or web address]. 02-02-2013 08:090400 Body weight 76.[address] [facility] [employer] [facility], Inc.; [employer]. 02-02-2013 08:09-0400 Diastolic blood pressure 82 mm[Hg] Camille Denierik [facility] [employer] [facility], [facility].; [employer], [email or web address]. 02-02-2013 08:09-0400 Heart rate 89 /min Camille Denierik [facility] [employer] [facility], [facility].; [employer], [email or web address]. 02-02-2013 08:09-0400 Inhaled oxygen concentration 20 % Camille Weerik [facility] [employer] [facility], [facility].; [employer]. 02-02-2013 08:09-0400 SaO2% (BldA) [Mass fraction] 99 % Camille Weerik [facility] [employer] [facility], [facility].; [employer]. 02-02-2013 08:09-0400 Systolic blood pressure 110 mm[Hg] Camille Denierik [facility] [employer] [facility], [email or web address].; [employer], [email or web address]. 01-23-2013 11:04-0400 Body height 171.45 cm Asmita Vivar RN Work Phone: [place] [employer] [facility].; [employer]. 01-23-2013 11:04-0400 Body mass index (BMI) [Ratio] 26.08 kg/m2 Asmita Vivar RN Work Phone: [employer].; [employer]. 01-23-2013 11:04-0400 Body surface area Derived from formula 1.89 m2 Asmita Vivar RN Work Phone: [employer].; [employer]. 01-23-2013 11:04-0400 Body weight 76.66 kg Asmita Vivar RN Work Phone: [employer].; [employer]. 01-23-2013 11:04-0400 Diastolic blood pressure 62 mm[Hg] Asmita Vivar RN Work Phone: [employer].; [employer]. 01-23-2013 11:04-0400 Heart rate 92 /min Asmita Vivar RN Work Phone: [employer].; [employer]. 01-23-2013 11:04-0400 Systolic blood pressure 118 mm[Hg] Asmita Arcos Work Phone: [employer].; [employer]. 10-16-2012 11:47-0400 Body height 171.45 cm Sigrid Ward RN [employer].; [employer]. 10-16-2012 11:47-0400 Body mass index (BMI) [Ratio] 26.63 kg/m2 Sigrid Ward RN [employer].; [employer]. 10-16-2012 11:47-0400 Body surface area Derived from formula 1.91 m2 Sigrid Ward RN [employer].; [employer]. 10-16-2012 11:47-0400 Body temperature 97.9 [degF] Sigrid Ward RN [employer].; [employer]. 10-16-2012 11:47-0400 Body weight 78.29 kg Sigrid Ward RN [employer].; [employer]. 10-16-2012 11:47-0400 Diastolic blood pressure 76 mm[Hg] Sigrid Ward RN [place] [employer].; [employer] 10-16-2012 11:47-0400 Systolic blood pressure 114 mm[Hg] Sigrid Ward RN [employer].; [employer] 08-22-2012 11:32-0400 Body height 171.45 cm Asmita Vivar RN Work Phone: [employer].; [employer] 08-22-2012 11:32-0400 Body mass index (BMI) [Ratio] 27 kg/m2 Asmita Vivar RN Work Phone: [employer].; [employer] 08-22-2012 11:32-0400 Body surface area Derived from formula 1.92 m2 Asmita Vivar RN Work Phone: [employer].; [employer]. 08-22-2012 11:32-0400 Body weight 79.38 kg Asmita Vivar RN Work Phone: [employer].; [employer]. 08-22-2012 11:32-0400 Diastolic blood pressure 74 mm[Hg] Asmita Vivar RN Work Phone: [employer].; [employer] 08-22-2012 11:32-0400 Heart rate 82 /min Asmita Vivar RN Work Phone: [employer]. 08-22-2012 11:32-0400 Systolic blood pressure 112 mm[Hg] Asmita Arcos Work Phone: [employer]. 07-03-2012 14:23-0500 Body height 171.45 cm Anayeli Chanel MD Work Phone: [employer]. 07-03-2012 14:23-0500 Diastolic blood pressure 72 mm[Hg] Anayeli Chanel MD Work Phone: [employer]. 07-03-2012 14:23-0500 Heart rate 90 /min Anayeli Chanel MD Work Phone: [place] [employer] [facility].; [employer] [facility]. 07-03-2012 14:23-0500 Systolic blood pressure 134 mm[Hg] Anayeli Chanel MD Work Phone: [employer] [facility].; [employer]. 04-11-2012 08:55-0500 Body height 171.45 cm Anayeli Reyesach [facility] [facility].; [employer]. 04-11-2012 08:55-0500 Body mass index (BMI) [Ratio] 26.85 kg/m2 Anayeli Shi Rebecca [facility] [facility] Hospital[facility].; [employer]. 04-11-2012 08:55-0500 Body surface area Derived from formula 1.92 m2 Anayeli Shi Rebecca [facility] Inc[employer].; [employer]. 04-11-2012 08:55-0500 Body weight 78.93 kg Anayeli Reyesach [facility] [employer].; [employer]. 04-11-2012 08:55-0500 Diastolic blood pressure 80 mm[Hg] Anayeli Dempseylabach [facility].; [employer]. 04-11-2012 08:55-0500 Heart rate 79 /min Anayeli Reyesach [facility].; [employer]. 04-11-2012 08:55-0500 Systolic blood pressure 122 mm[Hg] Anayeli Reyesac h [facility].; [employer]. 04-01-2012 11:57-0500 Body temperature 98.4 [degF] Neilee L Vess INSTRUMENTAL MUSICIAN [employer].; [employer]. 04-01-2012 11:57-0500 Diastolic blood pressure 66 mm[Hg] Neilee L Vess INSTRUMENTAL MUSICIAN [employer].; [employer]. 04-01-2012 11:57-0500 Heart rate 82 /min Neilee L Vess INSTRUMENTAL MUSICIAN [facility].; [employer] [facility]. 04-01-2012 11:57-0500 Systolic blood pressure 142 mm[Hg] Cyndi Piper LPN [employer].; [employer] 12-21-2011 09:00-0400 Body height 171.45 cm Asmita Vivar RN Work Phone: [employer].; [employer] 12-21-2011 09:00-0400 Body mass index (BMI) [Ratio] 27 kg/m2 Asmita Vivar RN Work Phone: [employer].; [employer] 12-21-2011 09:00-0400 Body surface area Derived from formula 1.92 m2 Asmita Vivar RN Work Phone: [employer]. 12-21-2011 09:00-0400 Body weight 79.38 kg Asmita Vivar RN Work Phone: [employer] 12-21-2011 09:00-0400 Diastolic blood pressure 80 mm[Hg] Asmita Vivar RN Work Phone: [employer].; [employer] 12-21-2011 09:00-0400 Heart rate 76 /min Asmita Vivar RN Work Phone: [employer] 12-21-2011 09:00-0400 Systolic blood pressure 124 mm[Hg] Asmita Arcos Work Phone: [employer] 10-12-2011 09:57-0400 Body height 171.45 cm Anayeli Chanel MD Work Phone: [employer] 10-12-2011 09:57-0400 Body mass index (BMI) [Ratio] 27.16 kg/m2 Anayeli Chanel MD Work Phone: [employer]. 10-12-2011 09:57-0400 Body surface area Derived from formula 1.93 m2 Anayeli Chanel MD Work Phone: [place] [employer].; [employer] 10-12-2011 09:57-0400 Body weight 79.83 kg Anayeli Chanel MD Work Phone: [employer].; [employer] 10-12-2011 09:57-0400 Diastolic blood pressure 88 mm[Hg] Anayeli Chanel MD Work Phone: [employer].; [employer] 10-12-2011 09:57-0400 Heart rate 74 /min Anayeli Chanel MD Work Phone: [employer]. 10-12-2011 09:57-0400 Systolic blood pressure 140 mm[Hg] Anayeli Chanel MD Work Phone: [employer]. 06-11-2011 09:21-0500 Body height 171.45 cm Sigrid Ward RN [employer].; [employer] 06-11-2011 09:21-0500 Body mass index (BMI) [Ratio] 27.16 kg/m2 Sigrid Ward RN [facility]za [employer] [facility] Hospital[facility].; [employer]. 06-11-2011 09:21-0500 Body surface area Derived from formula 1.93 m2 Sigrid Ward RN [employer] [facility].; [employer]. 06-11-2011 09:21-0500 Body temperature 98.1 [degF] Sigrid Ward RN [employer].; [employer] 06-11-2011 09:21-0500 Body weight 79.83 kg Sigrid Ward RN [employer] 06-11-2011 09:21-0500 Diastolic blood pressure 77 mm[Hg] Sigrid Ward RN [employer].; [employer] 06-11-2011 09:21-0500 Heart rate 93 /min Sigrid Ward RN [employer] 06-11-2011 09:21-0500 Inhaled oxygen concentration 20 % Sigrid Ward RN [place] [employer].; [employer]. 06-11-2011 09:21-0500 SaO2% (BldA) [Mass fraction] 99 % Sigrid Ward RN [place] [employer].; [employer]. 06-11-2011 09:21-0500 Systolic blood pressure 118 mm[Hg] Sigrid Ward RN [employer].; [employer] 03-19-2011 12:56-0500 Body height 171.45 cm Asmita Vivar RN Work Phone: [employer]. 03-19-2011 12:56-0500 Body mass index (BMI) [Ratio] 27.1 kg/m2 Asmita Vivar RN Work Phone: [employer].; [employer]. 03-19-2011 12:56-0500 Body surface area Derived from formula 1.92 m2 Asmita Vivar RN Work Phone: [employer].; [employer]. 03-19-2011 12:56-0500 Body weight 79.65 kg Asmita Vivar RN Work Phone: [employer].; [employer]. 03-19-2011 12:56-0500 Diastolic blood pressure 92 mm[Hg] Asmita Vivar RN Work Phone: [employer]. 03-19-2011 12:56-0500 Heart rate 86 /min Asmita Vivar RN Work Phone: [employer].; [employer]. 03-19-2011 12:56-0500 Systolic blood pressure 134 mm[Hg] Asmita Arcos Work Phone: [employer] 01-25-2011 11:57-0400 Body height 171.45 cm Mirellataisha Sanders INSTRUMENTAL MUSICIAN Work Phone: [employer].; [employer] 01-25-2011 11:57-0400 Body mass index (BMI) [Ratio] 26.7 kg/m2 Mirella Tommy INSTRUMENTAL MUSICIAN Work Phone: [employer].; [employer] 01-25-2011 11:57-0400 Body surface area Derived from formula 1.91 m2 Mirella Tommy INSTRUMENTAL MUSICIAN Work Phone: [employer].; [employer] 01-25-2011 11:57-0400 Body weight 78.47 kg Mirella Tommy INSTRUMENTAL MUSICIAN Work Phone: [employer].; [employer]. 01-25-2011 11:57-0400 Diastolic blood pressure 98 mm[Hg] Mirella Tommy INSTRUMENTAL MUSICIAN Work Phone: [employer].; [employer] 01-25-2011 11:57-0400 Heart rate 83 /min Mirella Tommy INSTRUMENTAL MUSICIAN Work Phone: [employer].; [employer] 01-25-2011 11:57-0400 Systolic blood pressure 140 mm[Hg] Mirella Tommy INSTRUMENTAL MUSICIAN Work Phone: [employer].; [employer] 01-03-2011 09:22-0400 Body height 171.45 cm Torri Williamson [facility] [employer].; [employer] 01-03-2011 09:22-0400 Body mass index (BMI) [Ratio] 27 kg/m2 Torri Williamson [facility] [employer] 01-03-2011 09:22-0400 Body surface area Derived from formula 1.92 m2 Torri Williamson [facility] Inc.[employer].; [employer] 01-03-2011 09:22-0400 Body temperature 96.4 [degF] Torri Williamson INSTRUMENTAL MUSICIAN [employer] 01-03-2011 09:22-0400 Body weight 79.38 kg Torri Williamson LPN [employer].; [employer] 01-03-2011 09:22-0400 Diastolic blood pressure 96 mm[Hg] Torri Williamson INSTRUMENTAL MUSICIAN [employer] 01-03-2011 09:22-0400 Heart rate 76 /min Torri Williamson LPN [employer] 01-03-2011 09:22-0400 Systolic blood pressure 164 mm[Hg] Torri Negrete INSTRUMENTAL MUSICIAN [employer] 12-26-2010 15:23-0400 Body height 171.45 cm Mirella Tommy INSTRUMENTAL MUSICIAN Work Phone: [employer].; [employer] 12-26-2010 15:23-0400 Body mass index (BMI) [Ratio] 27 kg/m2 [employer] INSTRUMENTAL MUSICIAN Work Phone: [employer].; [employer] 12-26-2010 15:23-0400 Body surface area Derived from formula 1.92 m2 [employer] INSTRUMENTAL MUSICIAN Work Phone: [employer].; [employer]. 12-26-2010 15:23-0400 Body weight 79.38 kg Mirella Tommy INSTRUMENTAL MUSICIAN Work Phone: [employer].; [employer]. 12-26-2010 15:23-0400 Diastolic blood pressure 104 mm[Hg] Mirella Tommy INSTRUMENTAL MUSICIAN Work Phone: [employer].; [employer]. 12-26-2010 15:23-0400 Heart rate 68 /min [employer] INSTRUMENTAL MUSICIAN Work Phone: [employer].; [employer]. 12-26-2010 15:23-0400 Systolic blood pressure 163 mm[Hg] Mirella Sanders DARI Work Phone: [employer].; [employer]. 12-23-2010 08:38-0400 Diastolic blood pressure 109 mm[Hg] Anayeli Fernandez LPN [employer]. 12-23-2010 08:38-0400 Heart rate 100 /min Anayeli Fernandez LPN [employer].; [employer]. 12-23-2010 08:38-0400 Systolic blood pressure 157 mm[Hg] Anayeli benjamin LPN [employer].; [employer]. 11-13-2010 13:03-0400 Diastolic blood pressure 90 mm[Hg] Sigrid Ward RN [employer]. 11-13-2010 13:03-0400 Systolic blood pressure 138 mm[Hg] Sigrid Ward RN [employer].; [employer]. 11-09-2010 10:32-0400 Body temperature 99.4 [degF] Camille Zaldivar LPN [employer].; [employer]. 11-09-2010 10:32-0400 Body weight 78.02 kg Camille Zaldivar LPN [employer].; [employer]. 11-09-2010 10:32-0400 Diastolic blood pressure 91 mm[Hg] Camille Zaldivar LPN [employer].; [employer]. 11-09-2010 10:32-0400 Heart rate 102 /min Camille Zaldivar LPN [employer].; [employer]. 11-09-2010 10:32-0400 Inhaled oxygen concentration 20 % Camille Zaldivar LPN [employer].; [employer]. 11-09-2010 10:32-0400 SaO2% (BldA) [Mass fraction] 95 % Camille Zaldivar LPN [place] [employer] [facility].; [employer] [facility]. 11-09-2010 10:32-0400 Systolic blood pressure 141 mm[Hg] Camille Zaldivar LPN [place] [employer] [facility].; [employer] 11-04-2010 10:29-0400 Body temperature 99.3 [degF] Anayeli Chanel MD Work Phone: [employer].; [employer] 11-04-2010 10:29-0400 Diastolic blood pressure 102 mm[Hg] Anayeli Chanel MD Work Phone: [employer] [facility].; [employer]. 11-04-2010 10:29-0400 Heart rate 104 /min Anayeli Chanel MD Work Phone: [employer]. 11-04-2010 10:29-0400 Systolic blood pressure 164 mm[Hg] Anayeli Chanel MD Work Phone: [employer]. 04-06-2010 08:21-0500 Body temperature 97.4 [degF] Sigrid Ward RN [employer]. 04-06-2010 08:21-0500 Body weight 79.29 kg Sigrid Ward RN [employer]. 04-06-2010 08:21-0500 Diastolic blood pressure 83 mm[Hg] Sigrid Ward RN [employer]. 04-06-2010 08:21-0500 Heart rate 85 /min Sigrid Ward RN [employer]. 04-06-2010 08:21-0500 Systolic blood pressure 141 mm[Hg] Sigrid Ward RN [employer]. 04-04-2010 21:07-0500 Body temperature 97.6 [degF] Gene Tijerina MD Work Phone: [employer] 04-04-2010 21:07-0500 Diastolic blood pressure 85 mm[Hg] Gene Tijerina MD Work Phone: [employer] [facility].; [employer] 04-04-2010 21:07-0500 Heart rate 89 /min Gene Tijerina MD Work Phone: [employer] 04-04-2010 21:07-0500 Respiratory rate 16 /min Gene Tijerina MD Work Phone: [employer] 04-04-2010 21:07-0500 Systolic blood pressure 142 mm[Hg] Gene Tijerina MD Work Phone: [employer] 03-31-2010 11:11-0500 Body weight 78.93 kg Shelly Palma LPN [employer] [facility].; [employer] 03-31-2010 11:11-0500 Diastolic blood pressure 81 mm[Hg] Shelly Palma LPN [employer].; [employer] 03-31-2010 11:11-0500 Heart rate 77 /min Shelly Palma LPN [employer] 03-31-2010 11:11-0500 Systolic blood pressure 146 mm[Hg] Shelly Palma LPN [employer] Encounters Encounter Date Encounter Type Care Provider Facility Start: 04-24-2023 End: 04-24-2023 Bree Hung PA-C Work Phone: [employer] [facility] Start: 04-22-2023 End: 04-22-2023 ambulatory [facility] Start: 04-18-2023 End: 04-18-2023 ambulatory [facility] Start: 04-12-2023 End: 04-12-2023 Bree Hung PA-C Work Phone: [facility]. Start: 03-14-2023 Telephone encounter Barron angulo MD Work Phone: Hematology/Oncology Procedures Date Procedure Procedure Detail Performing Clinician Start: 02-25-2023 End: 03-06-2023 Us abdominal real time w/image limited Bree Webb Hung PA-C Work Phone: Start: 02-15-2023 End: 02-15-2023 Adv care pln/ no alt dcsn mkr docd or refusal Bree Webb Hung PA-C Work Phone: Start: 02-15-2023 End: 02-15-2023 Depression screening Bree Webb Hung PA -C Work Phone: Start: 02-15-2023 End: 02-15-2023 Falls risk assessment documented Bree Webb Hung PA-C Work Phone: Start: 02-15-2023 End: 02-15-2023 PPPS, subseq visit Bree Webb Hung PA- C Work Phone: Start: 02-15-2023 End: 02-15-2023 Pt falls assess docd w/o fall/injury past year Bree Webb Hung PA-C Work Phone: Start: 02-15-2023 End: 02-15-2023 Scr dep neg, no plan reqd Bree Olivarez er PA-C Work Phone: Start: 02-15-2023 End: 04-22-2023 Screening digital breast tomosynthesis bi Bree Webb Hung PA-C Work Phone: Start: 07-25-2022 End: 08-01-2022 Ecg routine ecg w/least 12 lds i&r only Bree Webb Hung PA-C Work Phone: Start: 01-17-2022 End: 01-17-2022 Adv care pln/ no alt dcsn mkr docd or refusal Bree Webb Hung PA-C Work Phone: Start: 01-17-2022 End: 01-17-2022 Depression screening Bree Rogers Work Phone: Start: 01-17-2022 End: 01-17-2022 Falls risk assessment documented Bree Webb Abhilash GOODWIN Work Phone: Start: 01-17-2022 End: 01-17-2022 Lab findings surveillance Burton Gutierrez L PN Start: 01-17-2022 End: 01-17-2022 PPPS, subseq visit Bree Jon Ng Work Phone: Start: 01-17-2022 End: 01-17-2022 Pt falls assess docd w/o fall/injury past year Breereece Hung PA-C Work Phone: Start: 01-17-2022 End: 01-17-2022 Scr dep neg, no plan reqd Bree Jon GARCIA-C Work Phone: Start: 01-17-2022 End: 01-17-2022 Burton Matt INSTRUMENTAL MUSICIAN Start: 01-31-2021 End: 01-31-2021 Examination of retina Burtonhipolito Gutierrez INSTRUMENTAL MUSICIAN Start: 02-22-2020 End: 02-22-2020 Depression screening Bree Jon Rogers Work Phone: Start: 02-22-2020 End: 02-22-2020 Scr dep neg, no plan reqd Bree Webb Juanis CHAC Work Phone: Start: 10-05-2019 End: 10-05-2019 Screening for malignant neoplasm of large intestine Burton Matt INSTRUMENTAL MUSICIAN Start: 08-24-2019 End: 08-24-2019 Burton Matt INSTRUMENTAL MUSICIAN Start: 02-09-2019 End: 02-09-2019 Depression screening Bree Jon Rogers Work Phone: Start: 02-09-2019 End: 02-09-2019 Microscopic examination of cervical Papanicolaou smear Burton Matt INSTRUMENTAL MUSICIAN Start: 02-09-2019 End: 02-09-2019 Burton Matt INSTRUMENTAL MUSICIAN Start: 08-15-2018 End: 08-15-2018 Destruction premalignant lesion 1st Bree J Hung PA-C Work Phone: Start: 02-05-2018 End: 02-05-2018 Most recent hemoglobin a1c level gt 7.0-9.0 % Bree Hung PA-C Work Phone: Start: 08-28-2017 End: 08-28-2017 Body mass index documented Bree rader PA-C Work Phone: Start: 08-28-2017 End: 08-28-2017 Most recent diastolic blood pressure < 80 mm hg Bree Hung PA-C Work Phone: Start: 08-28-2017 End: 08-28-2017 Most recent systolic blood pressure <130 mm hg Bree Hung PA-C Work Phone: Start: 01-04-2017 End: 01-04-2017 Burton Gutierrez INSTRUMENTAL MUSICIAN Start: 12-26-2016 End: 12-26-2016 Ecg routine ecg w/least 12 lds i&r only Bree Hung PA-C Work Phone: Start: 03-21-2016 End: 03-21-2016 Screening mammography Burton Nunnmerlyn MARKSN Start: 03-16-2016 End: 03-16-2016 Destruction premalignant lesion 1st Abdirahman Mathews MD Work Phone: Start: 03-01-2016 End: 06-13-2016 Mammogram, screening Bree GARCIA -C Work Phone: Start: 10-15-2014 End: 10-15-2014 Removal sutures under anesthesia same surgeon FLOAT NURSE Start: 10-11-2014 End: 10-11-2014 Exc b9 lesion mrgn xcp sk tg s/n/h/f/g 0.5 cm/< Anayeli Chanel MD Work Phone: Start: 09-07-2014 End: 10-18-2014 Mammogram, screening Anayeli Chanel MD Work Phone: Start: 07-22-2013 End: 07-22-2013 Removal skn tags oil bay technician fibrq tags any area upw/15 Anayeli Chanel MD Work Phone: Start: 06-06-2013 End: 06-06-2013 Ophthalmic examination and evaluation Burton Gutierrez LPN Start: 02-17-2013 End: 02-23-2013 Ecg routine ecg w/least 12 lds i&r only Anayeli Chanel MD Work Phone: Start: 01-23-2013 End: 09-14-2013 Mammogram, screening Anayeli Chanel MD Work Phone: Start: 01-23-2013 End: 01-23-2013 Pure tone audiometry air only Anayeli Chanel MD Work Phone: Start: 05-06-2012 End: 05-06-2012 Burton Gutierrez LPN Start: 12-21-2011 End: 12-21-2011 Pure tone audiometry air only Anayeli Chanel MD Work Phone: Start: 11-26-2011 End: 02-28-2012 Mammogram, screening Anayeli Chanel MD Work Phone: Start: 12-20-2010 End: 12-26-2010 Mammogram, screening Anayeli Chanel MD Work Phone: Start: 11-22-2010 End: 11-22-2010 Pressurized/nonpressurized inhalation treatment Anayeli Chanel MD Work Phone: Start: 07-31-2010 End: 07-31-2010 Dexamethasone sodium phos Abdirahman Mathews MD Work Phone: Start: 05-06-2001 End: 05-06-2001 Burton Gutierrez LPN Plan of Treatment Date Care Activity Detail Author Start: 05-17-2023 [facility] [employer] Start: 05-13-2023 [employer]. Start: 05-06-2023 Comprehensive metabolic panel [employer].; [employer]. Start: 05-06-2023 Lipid panel [employer].; [employer]. Start: 04-12-2023 End: 04-19-2023 Xtrnl pt activ ecg transmis w/r&i 30 days [employer].; [employer]. Start: 02-15-2023 Blood occult fecal hgb deter ia qual feces 1-3 [employer]; [employer]. Start: 01-04-2023 [facility] Start: 05-06-2022 Advance Directive Discussion Advance Directive Discussion [facility] Start: 05-06-2022 Depression Assessment Depression Assessment [facility] Start: 01-17-2022 Dxa bone density study 1/> sites axial skel [employer]; [employer]. Start: 01-17-2022 Screening digital breast tomosynthesis bi [employer]; [employer]. Start: 07-19-2021 Cyanocobalamin vitamin b-12 [employer]; [employer]. Start: 11-13-2020 Bone Density Screening Bone Density Screening [facility] Start: 11-13-2020 Pneumococcal Vaccine: 65+ (1 - PCV) Pneumococcal Vaccine: 65+ (1 - PCV) [facility] Start: 02-05-2018 Screening mammography bi 2-view breast inc cad [employer]; [employer] Start: 2015 RSV Vaccine (1 - 1-dose 60+ series) RSV Vaccine (1 - 1-dose 60+ series) [facility] Start: 11-13-2005 Shingrix Vaccine (1 of 2) Shingrix Vaccine (1 of 2) [facility] Start: 11-13-2000 Cologuard (FIT-DNA) Cologuard (FIT-DNA) [facility] Start: 11-13-2000 Colonoscopy Colonoscopy [facility] Start: 11-13-2000 Colorectal Cancer Screening Colorectal Cancer Screening [facility] Start: 11-13-[address] Colonography [facility] Start: 11-13-2000 Diabetes Screening Diabetes Screening [facility] Start: 11-13-2000 Fecal Occult Blood Fecal Occult Blood [facility] Start: 11-13-2000 Lipid 1996 panel - Serum or Plasma Lipid Screening [facility] Start: 11-13-2000 Sigmoidoscopy Sigmoidoscopy [facility] Start: 1995 Mammography Mammogram Screening [facility] Start: 11-13-1974 Urine microalbumin profile DTaP,Tdap,Td Vaccine (1 - Tdap) [facility] Start: 11-13-1973 Hepatitis C Screening Hepatitis C Screening [facility] Start: 05-16-1956 Covid-19 Vaccine (#1) Covid-19 Vaccine (#1) [facility] [facility] [employer] [facility] [facility] Immunizations Immunization Date Immunization Notes Care Provider Anisa damian 02-20-2023 Bree Hung PA-C Work Phone: [employer].; [employer]. 02-09-2019 TD(adult) unspecifie d formulation Bree Hung PA-C Work Phone: [employer].; [employer]. 02-09-2019 influenza, injectabl e, quadrivalent, contains preservative Bree Hung PA-C Work Phone: [facility] [employer]; [employer]. 02-05-2018 influenza, injectabl e, quadrivalent, contains preservative Bree Hung PA-C Work Phone: [employer].; [employer]. 03-01-2017 influenza, injectabl e, quadrivalent, contains preservative Bree Hung PA-C Work Phone: [employer].; [employer] [facility]. 03-16-2016 influenza, injectabl e, quadrivalent, contains preservative Bree Hung PA-C Work Phone: [employer].; [employer]. 03-16-2016 unknown vaccine or immune globulin Bree Hung PA-C Work Phone: [employer].; [employer]. 06-02-2015 influenza, seasonal, injectable Bree Hung PA-C Work Phone: [employer].; [employer] [facility]. 11-28-2007 tetanus toxoid, reduced diphtheria toxoid, and acellular pertussis vaccine, adsorbed Bree Hung PA-C Work Phone: [employer].; [employer]. influenza virus vaccine, unspecified formulation Bree Hung PA-C Work Phone: [employer]; [employer] NEGATED: Highlighted row has not occurred!02-09-2019 TD(adult) unspecified formulation Bree Olivarezer PA-C Work Phone: [employer]; [employer]. NEGATED: Highlighted row has not occurred! influenza, seasonal, injectable Bree Hung PA-C Work Phone: [employer]; [employer] Payers Date Payer Category Payer Unknown [id number] 2021 Unknown [id number] 1955 Unknown [id number] 1955 Unknown [id number] Medicare [id number] Social History Date Type Detail Facility Tobacco smoking status [facility] Tobacco smoking consumption unknown [facility] Start: 1955 Sex Assigned At Not on file [facility] Start: 03-07-2023 Gender identity Not on file [facility] Start: 03-07-2023 Tobacco smoking status [facility] Never smoked tobacco [facility] Start: 03-07-2023 Tobacco use and exposure Smokeless tobacco non-user [facility] Start: 03-07-2023 Alcohol intake Lifetime non-d jacque (finding) [facility] Start: 03-07-2023 History of Social function [employer] [employer]. National Score (1-100), lower number is lower risk 72 [facility] Never smoker. [employer] Note 03-15-2023 Telephone Encounter - Whitney Cage - 03/15/2023 8:37 AM ESTTelephone Encounter - Odalis Wiley RN - 03/15/2023 8:19 AM ESTTelephone Encounter - Luz Maria Valdez - 03/14/2023 4:57 PM EST Note Date & Type Note Facility 03-15-2023 Miscellaneous Notes Formattin g of this note might be different from the original. Noted Per OV note, follow-up TBD pending lab that is in process. Odalis Wiley RN No follow up orders at check out/end of day. Please advise. Luz Maria Valdez documented in this encounter [facility] Progress note 03-14-2023 Note Date & Type Note Facility 03-14-2023 Note HNO ID: [id number] Author: Barron Martinez MD Service: ? Author Type: Physician Type: Progress Notes Filed: 03/14/2023 4:10 PM Note Text: Phone call. Reviewed labs. Hct normal, epo normal. Suspect prior erythrocytosis was secondary or hemoconcentrated. MPN pending. Will be in touch if JAK2 positive. 15 minute phone call Barron Martinez MD March 14, 2023 [facility] History of Present illness Narrative 03-14-2023 Barron Martinez MD - 03/14/2023 4:08 PM EST Note Date & Type Note Facility 03-14-2023 History of Presen t illness Narrative Phone call. Reviewed labs. Hct normal, epo normal. Suspect prior erythrocytosis was secondary or hemoconcentrated. MPN pending. Will be in touch if JAK2 positive. 15 minute phone call Barron Martinez MD March 14, 2023 documented in this encounter [facility] Progress note 03-07-2023 Note Date & Type Note Facility 03-07-2023 Note HNO ID: [id number] Author: Barron Martinez MD Service: ? Author Type: Physician Type: Progress Notes Filed: 03/07/2023 3:58 PM Note Text: HISTORY OF PRESENT ILLNESS: Elli Barnes is a 67 year old female referred for evaluation of mild erythrocytosis noted on 2 cbc's this year. Non smoker, no obvious sleep apnea, though she sleeps poorly. No pruritis. Labs reviewed, discussed possible etiologies. CLINICAL IMPRESSION: Erythrocytosis, secondary versus PCV RECOMMENDATION/PLAN: 1. Labs as ordered, phone visit 1 week. Written and verbal health teaching given to patient, patient verbalizes understanding and agrees with treatment plan. PAST MEDICAL HISTORY Diagnosis Date Diabetes mellitus (HCC) Elevated liver enzymes Essential hypertension Fibromyalgia Generalized anxiety disorder GERD (gastroesophageal reflux disease) Irritable bowel syndrome Mixed hyperlipidemia PAST SURGICAL HISTORY Procedure Laterality Date ARTHROSCOPY KNEE DIAGNOSTIC W/WO SYNOVIAL BX SPX Left 2001 Torn meniscus ARTHROSCOPY KNEE DIAGNOSTIC W/WO SYNOVIAL BX SPX Right 01/20/2017 LIGJ DIVJ AND/EXCJ VARICOSE VEIN CLUSTER 1 LEG Bilateral 2012 FAMILY HISTORY Problem Relation Age of Onset GERD Mother Diabetes Father Prostate Cancer Father Diabetes Sister Stroke Maternal Grandmother Social History Tobacco Use Smoking status: Never Smokeless tobacco: Never Vaping Use Vaping Use: Never used Substance Use Topics Alcohol use: Never Drug use: Never ALLERGIES: ALLERGIES No Known Allergies CURRENT OUTPATIENT MEDICATIONS: lisinopril (ZESTRIL) 10 mg tablet Take 1 tablet by mouth every afternoon. sertraline (ZOLOFT) 50 mg tablet Take 1 tablet by mouth every afternoon. ergocalciferol, vitamin D2, (VITAMIN D2 ORAL) Take 1 tablet by mouth once daily. ascorbic acid (VITAMIN C ORAL) Take 1 tablet by mouth once daily. calcium carbonate (CALCIUM 500 ORAL) Take 1 tablet by mouth once daily. POTASSIUM ORAL Take 1 tablet by mouth once daily. Multivitamin capsule Take 1 capsule by mouth once daily. APPLE CIDER VINEGAR ORAL Take 1 tablet by mouth once daily. OTC PRODUCT Take 1 tablet by mouth once daily. Cholesterol Support COLLAGEN MISC 1 Scoop once daily. TURMERIC ORAL Take 1 tablet by mouth once daily. flaxseed oil (OMEGA 3 ORAL) Take 1 tablet by mouth once daily. glucosamine sulfate (GLUCOSAMINE ORAL) Take 1 tablet by mouth once daily. OTC PRODUCT Take 1,000 mg by mouth once daily. Fish Oil Burp-Less REVIEW OF SYSTEMS: GENERAL: No fever, night sweats, weight loss or malaise. All other reviewed and negative other than HPI. PHYSICAL EXAMINATION: VITAL SIGNS: BP 152/74 Pulse 69 Temp 98.4 Ht 5' 6.142 (1.68m) Wt 161 lb (73.0kg) SpO2 97% BMI 25.87 kg/(m2). GENERAL APPEARANCE: Well appearing, in no acute distress, alert and oriented x3, well-hydrated, well nourished. No palpable splenomegaly I spent a total of 35 minutes on the date of the service which included preparing to see the patient, [id number] patient care, completing clinical documentation, obtaining and/or reviewing separately obtained history, performing a medically appropriate examination, counseling and educating the patient/family/caregiver, ordering medications, tests, or procedures, independently interpreting results (not separately reported), and communicating results to the patient/family/caregiver. Electronically Signed: Barron Martinez MD March 07, 2023 3:55 PM [facility] Note 02-22-2023 Telephone Encounter - Bree Nye - 02/22/2023 12:32 PM EDTTelephone Encounter - Whitney Cage - 02/21/2023 4:19 PM EDT Note Date & Type Note Facility 02-22-2023 Miscellaneous Notes Formattin g of this note might be different from the original. Scheduled with patient Received referral from nurse DX: POLYCYTHEMIA REF PROV: BREE HUNG INS: YARON DOAN 1st attempt LM When pt returns call please schedule first available New Patient with Placed Red Referral in Pt to Return call folder at [facility] desk documented in this encounter [facility] Evaluation note Note Date & Type Note Facility documented in this encounter [facility] Summary Purpose Family History Arthritis Status:Active Comments:Sister. Brain Tumor Status:Active Comments:Mother. benign Cerebrovascular Accident Status:Active Comment s:Grandmother Diabetes Mellitus Type II Status:Active Commen ts:Father. Hypertension Status:Active Comments:Mother. Father. Prostate Cancer Status:Active Comments:Father. Arthritis Status:Active Comments:Sister. Brain Tumor Status:Active Comments:Mother. benign Cerebrovascular Accident Status:Active Comment s:Grandmother Diabetes Mellitus Type II Status:Active Commen ts:Father. Hypertension Status:Active Comments:Mother. Father. Prostate Cancer Status:Active Comments:Father. Advance Directives No Advanced Directives Records FoundNo Advanced Directives Records FoundNo Advanced Directives Records Found Additional Source Comments Source Comments (unrecognize d section and content) In the event this informatio n is protected by the Federal Confidentiality of Alcohol and Drug Abuse Patient Records regulations: The Federal rules restrict any use of the information to criminally investigate or prosecute any alcohol or drug abuse patient.[facility] the event this information is protected by the Federal Confidentiality of Alcohol and Drug Abuse Patient Records regulations: The Federal rules restrict any use of the information to criminally investigate or prosecute any alcohol or drug abuse patient.[facility] the event this information is protected by the Federal Confidentiality of Alcohol and Drug Abuse Patient Records regulations: The Federal rules restrict any use of the information to criminally investigate or prosecute any alcohol or drug abuse patient.[facility] Reason for Visit (unrecogniz ed section and content) Reason Comments Established Patient Reason Comments AVS 03/14/23 Care Teams (unrecognized sec tion and content) INFORMATION SOURCE (unrecogn ized section and content) DATE CREATED AUTHOR AUTHOR'S BOLVIAR ATION 03/16/2023 [facility] DATE CREATED AUTHOR AUTHOR'S BOLIVAR ATION 04/22/2023 [facility] FOR RECORDS PERTAINING TO PATIENTS WHO ARE OR HAVE BEEN ENROLLED IN A CHEMICAL DEPENDENCY/SUBSTANCEABUSE PROGRAM, SOME INFORMATION MAY BE OMITTED. This clinical summary was aggregated from multiple sources. Caution should be exercised in using it in the provision of clinical care. This summary normalizes information from multiple sources, and as a consequence, information in this document may materially change the coding, format and clinical context of patient data. In addition, data may be omitted in some cases. CLINICAL DECISIONS SHOULD BE BASED ON THE PRIMARY CLINICAL RECORDS. [employer] [facility]. provides no warranty or guarantee of the accuracy or completeness of information in this document.
--- NOTE | 2023-05-03 12:59 | BRBX_PTH ---
PATHOLOGY RESULTS PATIENT: BRICE DELEON LOC: OPUS U#:[id number] AGE/SX: 67/F ROOM: RE05/03/[address]: Dr. Paulina Cooper MD : 1955 BED: DIS: 05/03/2023 SPEC #: [id number] RECD: 05/07/23 07:42 STATUS: ELAINE TAMIE #: [id number] ADRIÁN: 05/03/23 12:[address]: Paulina Cooper DEPT: SURGICAL PATHOLOGY RECD BY: Ana Arreguin ENTERED: 05/07/23 07:43 SP TYPE: BREAST BX OTHR DR: JOSE Ahn Tissues: Right breast, NOS Procedures: Surgery Specimen Level IV HEADER OPERATION: Ultrasound-guided right breast core biopsy PRE-OP DIAGNOSIS: Abnormal mammogram, right breast mass TISSUE SUBMITTED: Right breast 8 o'clock, 3.0 cm from nipple MICROSCOPIC DIAGNOSIS Right breast at 8 o'clock, ultrasound-guided core biopsy: Fragments of intraductal papilloma 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 AM:jaleel 05/08/2023 COMMENT Immunohistochemistry ([id number]) supports the above diagnosis. Case has been reviewed in consultation with Dr. Renner who concurs with the above diagnosis. IDC:[email or web address] MICROSCOPIC DESCRIPTION Slides are reviewed. GROSS DESCRIPTION Received in fixative is one container labeled with the patient's name and designated right breast. The specimen consists of multiple elongated fragments of sosa-yellow fibroadipose tissue that in aggregate measure 1.5 x 0.5 x 0.1 cm. The entire specimen is submitted in one cassette. / ANJANA:jaleel 05/07/2023 TC:5 Ischemic Time: <1-minute Fixation Time: 102.5 hours CPT: 78995
--- NOTE | 2023-05-03 13:06 | OP.PCM_ITS ---
Report of Operation Date of Procedure: 05/03/23 Pre-Operative Diagnosis: Right breast mass Post-Operative Diagnosis: Same Surgery/Procedure Performed:: Ultrasound guided right breast biopsy Surgeon: Paulina Cooper Type of Anesthesia: Local Estimated Blood Loss (mL): <5 cc Description of Procedure: Procedure: Right ultrasound-guided core biopsy Indications: 67year-old female with complex cyst at 8:00 in the right breast 3 centimeters from the nipple. Risk benefits were discussed the patient and she elected to proceed with ultrasound guided core biopsy with clip placement Description of procedure: Patient was brought into the ultrasound room in the right breast was marked. A timeout was completed verifying correct patient, procedure, site, specially, prior to beginning procedure. The right breast was prepped and draped in usual sterile fashion and using local anesthesia was obtained with 1% lidocaine with epi. The lesion was located with the ultrasou nd. Small incision was made with 11 blade to introduced the mammotome through the skin. Under ultrasound guidance multiple core samples were obtained using then 13-gauge mammotome and sent in formalin for pathology. The Bard dual ultra ribbon clip was then deployed into the biopsy cavity under ultrasound guidance and a picture was taken. Upon completion procedure hemostasis was obtained and a Steri-Strip and OpSite were placed. Patient was then taken to the mammography suite for clip verification. The clip was verified. The patient tolerated the procedure well and was discharged from the breast imaging department good condition. Grafts/Implants Used: Bard dual ultra ribbon clip Complications none
== END 2023-05-03 23:59 | disposition home or self-care (01) ==
PROVIDERS: PCP Physician Assistant; Visit Provider Surgery
DX: R92.8 Other abnormal and inconclusive findings on diagnostic imaging of breast (principal); N63.10 Unspecified lump in the right breast, unspecified quadrant; D24.1 Benign neoplasm of right breast
CPT/HCPCS: 19083; 88305; 88341; 88342

== ENCOUNTER 2023-05-14 15:09 | Outpatient (CLI) | payer MEDICARE, SELFPAY ==
--- OUTSIDE RECORDS SUMMARY | 2023-05-14 17:14 | XMS RPT_ITS | CCD ---
Author Name Unknown Address [id number] [place] [address] Organization [facility] Care Team Providers Care Director Of Product Marketing Name Role Phone Unavailable Primary Care Provider UnavailBree Schneider Primary Care Provider Barron Martinez MD Unavailable BARRON MARTINEZ Attending Unavailable BARRON MARTINEZ Referring Unavailable BREE HUNG Primary Care Unavailable BARRON MARTINEZ Referring Unavailable BREE HUNG Primary Care Unavailable BARRON MARTINEZ Attending Unavailable BREE HUNG Primary Care Unavailable Bree Hung PA-C Unavailable Bree Hung PA-C Unavailable Hematology Provider Unavailable Unavailable Omayra VALLES, Dr. Saman Beltrán Unavailable General Surgery Provider Unavailable Unavail able Orthopedic Provider Unavailable Unavailable [facility], . [facility] office Unavailable Dr. Ros Marcelo OD Unavailable [facility] Unavailable Dr. Ozzie Ham MD Unavailable Unavailable Dr. Iraj Mistry MD Unavailable STEVE Business Relationship Manager, Nutrition Counseling Unavailable Anayeli Chanel MD Unavailable Abdirahman Mathews MD Unavailable Gene Tijerina MD Unavailable Mehnaz Oden PA-C Unavailable Tommy PEST CONTROL SERVICE TECHNICIAN, Mirella Unavailable Cb ESPANA, Asmita Unavailable [phone] Ariadna ESPANA, Vannesa Lambert Unavailable Unavail able Vess PEST CONTROL SERVICE TECHNICIAN, Cyndi L Unavailable Unavailable Louie PEST CONTROL SERVICE TECHNICIAN, Shelly E Unavailable Unavailable Sylvia ESPANA, Sigrid Y Unavailable Unavailable Rebecca PEST CONTROL SERVICE TECHNICIAN, Anayeli Shi Unavailable Unavailab le Clay PEST CONTROL SERVICE TECHNICIAN, Torri Dove Unavailable Unavailab le Wengerd PEST CONTROL SERVICE TECHNICIAN, Camille Unavailable Unavailabl e [place] PEST CONTROL SERVICE TECHNICIAN, Danni N Unavailable Unavaila ble Cory PEST CONTROL SERVICE TECHNICIAN, Leigh Unavailable Unavailable Shorty ESPANA, Mehnaz Small Unavailable Unavaila ble Mutersbaugh PEST CONTROL SERVICE TECHNICIAN, Mitzy K Unavailable Unavai lable Susan, Lucia Unavailable Unavailable Gogoi (scribe), Hemanta Unavailable Unavaila ble Vanaman, April A Unavailable Unavailable Ravindra PEST CONTROL SERVICE TECHNICIAN, Kylie Unavailable Unavailable Ariadna GOODWIN, Chuck Hill Unavailable [phone] Steve NASCIMENTO, Kylie Unavailable Unavailable Matt PEST CONTROL SERVICE TECHNICIAN, Burton Unavailable Unavailable Unavailable Unavailable HUNG, BREE J Admitting Unavailable HUNG, BREE J Attending Unavailable HUNG, BREE J Consulting Unavailable HUNG, BREE J Primary Care Unavailable PROVIDER, UNKNOWN Consulting Unavailable HUNG, BREE J Admitting Unavailable HUNG, BREE J Attending Unavailable HUNG, BREE J Consulting Unavailable HUNG, BREE J Primary Care Unavailable PROVIDER, UNKNOWN Consulting Unavailable HUNG, BREE J Admitting Unavailable HUNG, BREE J Attending Unavailable HUNG, BREE J Consulting Unavailable HUNG, BREE J Primary Care Unavailable PROVIDER, UNKNOWN Consulting Unavailable Allergies Allergy Classification Reported Allergen(s) Allergy Type Date of Onset Reaction(s) Facility (6 sources) [facility]. (6 sources) egg [facility].; [facility]. Medications Current Medications Medication Drug Class(es) Dates Sig (Normalized) Sig (Original) Apple Cider Vinegar (8 sources) Completed/Discontinued Medications Medication Drug Class(es) Dates Sig (Normalized) Sig (Original) acetaminophen 500 mg / HYDROcodone bitartrate 5 mg oral tablet (6 sources) Opioid Agonist Start: 08-02-2010 End: 12-26-2010 albuterol 0.83 mg/ml inhalation solution (12 sources) beta2-Adrenergic Agonist Start: 11-22-2010 End: 12-26-2010 Problems Problem Classification Problem Date Documented Da te Episodic/Chronic Acute bronchitis (20 sources) Acute bronchitis; Translations: [Acute bronchitis, unspecified] 02-06-2019 Episodic Administrative/social admission (20 sources) Repeated prescription; Translations: [Encounter for issue of repeat prescription] 08-14-2018 Episodic Allergic reactions (12 sources) Contact dermatitis and other eczema, unspecified cause 06-18-2014 Episodic Anxiety disorders (20 sources) Anxiety; Translations: [Anxiety disorder, unspecified] 04-12-2023 Chronic Chronic obstructive pulmonary disease and bronchiectasis (20 sources) Bronchitis; Translations: [Bronchitis, not specified as acute or chronic] 03-01-2017 Episodic Diabetes mellitus with complications (20 sources) Type 2 diabetes mellitus; Translations: [Type 2 diabetes mellitus with other specified complication] 04-12-2023 Chronic Diabetes mellitus without complication (20 sources) Other abnormal glucose 01-24-2013 Episodic Disorders of lipid metabolism (20 sources) Hyperlipidemia; Translations: [Hyperlipidemia, unspecified] 04-12-2023 Chronic Disorders of teeth and jaw (6 sources) Acute apical periodontitis of pulpal origin 04-01-2013 Episodic Esophageal disorders (20 sources) Gastroesophageal reflux disease without esophagitis; Translations: [Gastro-esophageal reflux disease without esophagitis] 04-12-2023 Chronic Esophageal disorders (6 sources) Esophagitis; Translations: [Esophagitis, unspecified] 03-31-2010 Episodic Essential hypertension (20 sources) Benign hypertension; Translations: [Essential (primary) hypertension] 04-12-2023 Chronic Headache; including migraine (12 sources) Tension-type headache; Translations: [Tension-type headache, unspecified, not intractable] 02-06-2019 Chronic Heart valve disorders (20 sources) Heart murmur; Translations: [Cardiac murmur, unspecified] 04-12-2023 Episodic Immunizations and screening for infectious disease (20 sources) Patient encounter status; Translations: [Encounter for screening for respiratory tuberculosis] 06-15-2015 Episodic Malaise and fatigue (12 sources) Fatigue; Translations: [Other fatigue] 04-12-2023 Episodic Other aftercare (20 sources) Long-term (current) use of other medications 06-18-2014 Episodic Other aftercare (12 sources) Removal of sutures done; Translations: [Encounter for removal of sutures] 10-15-2014 Episodic Other circulatory disease (12 sources) History of transient ischemic attack; Translations: [Personal history of transient ischemic attack (TIA), and cerebral infarction without residual deficits] 04-12-2023 Episodic Other connective tissue disease (20 sources) Fibromyalgia; Translations: [Fibromyalgia] 04-12-2023 Episodic Other connective tissue disease (20 sources) Trigger finger of right hand; Translations: [Trigger finger, unspecified finger] 08-14-2018 Episodic Other connective tissue disease (6 sources) Foot pain; Translations: [Pain in unspecified foot] 10-07-2012 Episodic Other diseases of veins and lymphatics (20 sources) Venous varices; Translations: [Varicose veins of other specified sites] 08-14-2018 Episodic Other ear and sense organ disorders (18 sources) Hearing loss; Translations: [Unspecified hearing loss, unspecified ear] 08-14-2018 Chronic Other gastrointestinal disorders (12 sources) Irritable bowel syndrome; Translations: [Irritable bowel syndrome without diarrhea] 04-12-2023 Chronic Other hematologic conditions (13 sources) Erythrocytosis; Translations: [Secondary polycythemia] 03-14-2023 Episodic Other hematologic conditions (1 source) Secondary polycythemia; Translations: [Erythrocytosis] Onset: Episodic Other liver diseases (20 sources) Elevated liver enzymes level; Translations: [Abnormal levels of other serum enzymes] 04-12-2023 Episodic Other lower respiratory disease (20 sources) Cough; Translations: [Cough] 06-18-2014 Episodic Other non-traumatic joint disorders (12 sources) Hip pain; Translations: [Pain in right hip] 08-14-2018 Episodic Other non-traumatic joint disorders (20 sources) Pain in unspecified knee; Translations: [Pain in joint, lower leg] 08-14-2018 Episodic Other nutritional; endocrine; and metabolic disorders (12 sources) Overweight in adulthood with body mass index of 25 or more but less than 30; Translations: [Body mass index (BMI) 26.0-26.9, adult] 08-14-2018 Episodic Other screening for suspected conditions (not mental disorders or infectious disease) (20 sources) Full blood count abnormal; Translations: [Other specified abnormal findings of blood chemistry] 04-12-2023 Episodic Other skin disorders (12 sources) Actinic keratosis; Translations: [Actinic keratosis] 02-06-2019 Episodic Other skin disorders (18 sources) Sebaceous cyst of skin; Translations: [Sebaceous cyst] 08-14-2018 Episodic Other skin disorders (12 sources) Skin lesion; Translations: [Disorder of the skin and subcutaneous tissue, unspecified] 08-14-2018 Episodic Other skin disorders (6 sources) Skin tag; Translations: [Other hypertrophic disorders of the skin] 07-22-2013 Episodic Other upper respiratory disease (6 sources) Bleeding from nose; Translations: [Epistaxis] 03-19-2011 Episodic Other upper respiratory infections (20 sources) Sinusitis; Translations: [Chronic sinusitis, unspecified] 06-20-2022 Chronic Other upper respiratory infections (20 sources) Acute pharyngitis; Translations: [Acute pharyngitis, unspecified] 06-18-2014 Episodic Residual codes; unclassified (12 sources) Postmenopausal state; Translations: [Asymptomatic menopausal state] 04-12-2023 Episodic Spondylosis; intervertebral disc disorders; other back problems (20 sources) Neck pain; Translations: [Cervicalgia] 02-15-2023 Episodic Unclassified (6 sources) 02-15-2023 Unclassified (6 sources) 02-15-2023 Unclassified (6 sources) 02-15-2023 Viral infection (12 sources) Viral disease; Translations: [Viral infection, unspecified] 02-06-2019 Episodic Results Test Name Value Interpretation Reference Range Facil ity Vital Signs Date Time Vital Sign Value Performing Clinician Facility 04-12-2023 13:39-0500 Body height 170.18 cm Anayeli Fernandez LPN [facility]. 04-12-2023 13:39-0500 Body mass index (BMI) [Ratio] 24.9 kg/m2 Anayeli Fernandez LPN [facility] [employer] [employer] 04-12-2023 13:39-0500 Body surface area Derived from formula 1.83 m2 Anayeli Fernandez LPN [facility] [employer]. 04-12-2023 13:39-0500 Body weight 72.12 kg Anayeli Yuridia Fernandez PEST CONTROL SERVICE TECHNICIAN [facility].; [facility] [facility]. 04-12-2023 13:39-0500 Diastolic blood pressure 75 mm[Hg] Anayeli Yuridia DempseyRebecca PEST CONTROL SERVICE TECHNICIAN [facility] 04-12-2023 13:39-0500 Heart rate 69 /min Anayelialissa Reyesach PEST CONTROL SERVICE TECHNICIAN [facility] [employer] [facility]. 04-12-2023 13:39-0500 Systolic blood pressure 131 mm[Hg] Anayeli Yuridia Reyesac h PEST CONTROL SERVICE TECHNICIAN [facility].; [employer]. 02-15-2023 09:09-0400 Body height 170.18 cm Bree Olivarezer PA-C Work Phone: [facility] [employer] [facility].; [employer] [facility]. 02-15-2023 09:09-0400 Body mass index (BMI) [Ratio] 25.22 kg/m2 Bree Olivarezer PA-C Work Phone: [employer] [facility].; [employer] [facility]. 02-15-2023 09:09-0400 Body surface area Derived from formula 1.84 m2 Bree Olivarezer PA-C Work Phone: [employer] [facility].; [employer] [facility]. 02-15-2023 09:09-0400 Body weight 73.03 kg Bree Olivarezer PA-C Work Phone: [employer] [facility].; [employer] [facility]. 02-15-2023 09:09-0400 Diastolic blood pressure 76 mm[Hg] Bree Webb Hung PA-C Work Phone: [employer].; [employer] [facility]. 02-15-2023 09:09-0400 Heart rate 66 /min Bree Webb Hung PA-C Work Phone: [employer].; [employer] [facility]. 02-15-2023 09:09-0400 Systolic blood pressure 151 mm[Hg] Bree Hung PA-C Work Phone: [facility].; [facility] 11-05-2022 12:59-0400 Body height 170.[address] [facility].; [employer] 11-05-2022 12:59-0400 Body mass index (BMI) [Ratio] 24.43 kg/m2 Anayeli Fernandez [facility].; [employer] [facility]. 11-05-2022 12:59-0400 Body surface area Derived from formula 1.[address] [facility].; [employer]. 11-05-2022 12:59-0400 Body temperature 99.9 [degF] Anayeli M Rebecca [facility].; [employer]. 11-05-2022 12:59-0400 Body weight 70.[address] [facility].; [employer]. 11-05-2022 12:59-0400 Diastolic blood pressure 76 mm[Hg] [facility] [employer]. 11-05-2022 12:59-0400 Heart rate 101 /min Anayeli Fernandez [facility].; [employer] [facility]. 11-05-2022 12:59-0400 Inhaled oxygen concentration 20 % Anayeli Fernandez [facility].; [employer]. 11-05-2022 12:59-0400 SaO2% (BldA) [Mass fraction] 98 % Anayeli Fernandez [facility].; [employer]. 11-05-2022 12:59-0400 Systolic blood pressure 149 mm[Hg] Anayeli benjamin PEST CONTROL SERVICE TECHNICIAN [facility].; [employer]. 07-25-2022 13:38-0400 Body height 170.18 cm Kylie Wilson [facility] [facility]. 07-25-2022 13:38-0400 Body mass index (BMI) [Ratio] 23.81 kg/m2 Kylie Wilson MA [facility].; [facility] 07-25-2022 13:38-0400 Body surface area Derived from formula 1.8 m[address] Wilson MA [facility] [employer] [facility] 07-25-2022 13:38-0400 Body weight 68.95 kg Kylie Wilson MA [facility].; [employer] [facility]. 07-25-2022 13:38-0400 Diastolic blood pressure 77 mm[Hg] Kylie Wilson MA [facility] [employer] [facility]. 07-25-2022 13:38-0400 Heart rate 99 /min Kylie Wilson MA [facility].; [employer] [facility]. 07-25-2022 13:38-0400 Systolic blood pressure 134 mm[Hg] Kylie Wilson MA [facility], [facility].; [employer] [facility]. 06-20-2022 09:05-0500 Body height 170.18 cm ConchitaPetty Williamson LPN [facility] [employer] [facility] 06-20-2022 09:05-0500 Body mass index (BMI) [Ratio] 24.28 kg/m2 Torri Williamson LPN [facility] [employer] [facility] 06-20-2022 09:05-0500 Body surface area Derived from formula 1.81 m2 Torri Williamson LPN [facility] [employer] [employer] 06-20-2022 09:05-0500 Body temperature 98.1 [degF] Torri Williamson PEST CONTROL SERVICE TECHNICIAN [employer] [facility] [employer] [employer] 06-20-2022 09:05-0500 Body weight 70.31 kg Torri Williamson LPN [employer] [facility] [employer] [employer] 06-20-2022 09:05-0500 Diastolic blood pressure 82 mm[Hg] Torri Williamson LPN [facility] [employer] [facility]. 06-20-2022 09:05-0500 Heart rate 97 /min Torri Williamson [facility].; [employer] [facility] 06-20-2022 09:05-0500 Inhaled oxygen concentration 20 % ConchitaPetty Williamson [facility].; [employer] [facility]. 06-20-2022 09:05-0500 SaO2% (BldA) [Mass fraction] 99 % Torri Williamson [facility].; [employer]. 06-20-2022 09:05-0500 Systolic blood pressure 181 mm[Hg] Torri Negrete [facility] [employer] [employer] [employer] 02-16-2022 08:24-0400 Body height 170.18 cm Anayeli Fernandez [facility] [employer] [facility] [employer] [employer]. 02-16-2022 08:24-0400 Body mass index (BMI) [Ratio] 25.53 kg/m2 Anayeli Fernandez [facility] [employer] [facility] [employer], [employer]. 02-16-2022 08:24-0400 Body surface area Derived from formula 1.85 m2 Anayeli Fernandez [facility] [employer] [facility].; [employer]. 02-16-2022 08:24-0400 Body weight 73.94 kg Anayeli Fernandez [facility] [employer] [facility].; [employer], [employer]. 02-16-2022 08:24-0400 Diastolic blood pressure 82 mm[Hg] Anayeli Fernandez [facility] [employer] [facility].; [employer], [employer]. 02-16-2022 08:24-0400 Heart rate 91 /min Anayeli Fernandez [facility] [employer] [facility] [employer], [employer]. 02-16-2022 08:24-0400 Systolic blood pressure 136 mm[Hg] Anayeli benjamin [facility] [employer] [facility] [employer], [employer]. 01-17-2022 08:33-0400 Body height 170.18 cm Anayeli Shi Rebecca [facility].; [facility] 01-17-2022 08:33-0400 Body mass index (BMI) [Ratio] 26 kg/m2 Anayeli Shi Rebecca [facility]. 01-17-2022 08:33-0400 Body surface area Derived from formula 1.87 m2 Anayeli Shi Rebecca [facility].; [employer] [facility]. 01-17-2022 08:33-0400 Body weight 75.[address] [facility].; [facility]. 01-17-2022 08:33-0400 Diastolic blood pressure 79 mm[Hg] Anayeli Dempseylabach [facility].; [facility]. 01-17-2022 08:33-0400 Heart rate 77 /min Anayeli Shi Rebecca [facility].; [employer] [facility]. 01-17-2022 08:33-0400 Systolic blood pressure 145 mm[Hg] Anayeli Shi Amyac h [facility].; [facility]. 07-19-2021 08:59-0400 Body height 170.18 cm Bree Jon Olivarezer PA-C Work Phone: [employer] [facility].; [employer] [facility]. 07-19-2021 08:59-0400 Body mass index (BMI) [Ratio] 25.22 kg/m2 Bree Webb Hung PA-C Work Phone: [facility] [facility].; [facility] [facility]. 07-19-2021 08:59-0400 Body surface area Derived from formula 1.84 m2 Bree Jon Hung PA-C Work Phone: [employer].; [facility] [facility]. 07-19-2021 08:59-0400 Body weight 73.03 kg Bree J Hung PA-C Work Phone: [facility].; [facility]. 07-19-2021 08:59-0400 Diastolic blood pressure 82 mm[Hg] Bree Jon Hung PA-C Work Phone: [facility].; [facility]. 07-19-2021 08:59-0400 Heart rate 65 /min Bree Jon Hung PA-C Work Phone: [facility] [employer] [employer] [facility]. 07-19-2021 08:59-0400 Systolic blood pressure 146 mm[Hg] Bree Jon Olivarezer PA-C Work Phone: [facility].; [facility]. 02-28-2021 13:09-0400 Body height 170.18 cm Kylie Waite LPN [facility].; [facility]. 02-28-2021 13:09-0400 Body mass index (BMI) [Ratio] 23.96 kg/m2 Kylie Waite LPN [facility].; [facility]. 02-28-2021 13:09-0400 Body surface area Derived from formula 1.8 m2 [address]yl[address] Waite LPN [facility].; [facility]. 02-28-2021 13:09-0400 Body temperature 97.2 [degF] Kylie Waite LPN [facility].; [facility]. 02-28-2021 13:09-0400 Body weight 69.4 kg Kylie Waite LPN [facility].; [facility]. 02-28-2021 13:09-0400 Diastolic blood pressure 77 mm[Hg] Klyie Waite LPN [facility].; [facility]. 02-28-2021 13:09-0400 Heart rate 71 /min Kylie Waite LPN [facility].; [facility] [employer]. 02-28-2021 13:09-0400 Inhaled oxygen concentration 20 % [facility]. 02-28-2021 13:09-0400 SaO2% (BldA) [Mass fraction] 99 % Kylie Waite PEST CONTROL SERVICE TECHNICIAN [facility].; [employer] [facility]. 02-28-2021 13:09-0400 Systolic blood pressure 127 mm[Hg] Kylie Waite LPN [facility] [employer] [facility]. 08-22-2020 08:12-0400 Body height 170.18 cm Anayeli Yuridia DempseyRebecca [facility].; [facility] [facility]. 08-22-2020 08:12-0400 Body mass index (BMI) [Ratio] 25.22 kg/m2 Anayeli Yuridia DempseyRebecca [facility] [employer] 08-22-2020 08:12-0400 Body surface area Derived from formula 1.84 m2 Anayeli Yuridia DempseyRebecca [facility] [employer] [facility] [employer] [employer]. 08-22-2020 08:12-0400 Body weight 73.03 kg Anayeli Yuridia ReyesRebecca PEST CONTROL SERVICE TECHNICIAN [employer] [facility] [employer], [employer]. 08-22-2020 08:12-0400 Diastolic blood pressure 77 mm[Hg] Anayeli Dempseylabach PEST CONTROL SERVICE TECHNICIAN [facility] [employer] [employer] 08-22-2020 08:12-0400 Heart rate 77 /min Anayeli Reyesach PEST CONTROL SERVICE TECHNICIAN [employer] [facility] [employer] [facility]. 08-22-2020 08:12-0400 Systolic blood pressure 119 mm[Hg] Anayeli Reyesac h PEST CONTROL SERVICE TECHNICIAN [employer] [facility].; [employer]. 02-22-2020 09:18-0400 Body height 170.18 cm Anayeli Yuridia DempseyRebecca [facility] [employer] [facility].; [employer]. 02-22-2020 09:18-0400 Body mass index (BMI) [Ratio] 24.9 kg/m2 Anayeli M Rebecca [facility] [facility] [facility] [employer]. 02-22-2020 09:18-0400 Body surface area Derived from formula 1.[address] [facility], Inc.; [employer] 02-22-2020 09:18-0400 Body weight 72.[address] [facility], Inc.; [employer] 02-22-2020 09:18-0400 Diastolic blood pressure 80 mm[Hg] Anayeli Dempseylabach [facility] [employer] [facility], Inc.; [employer] 02-22-2020 09:18-0400 Heart rate 70 /min Anayeli Dempseylabach [facility] [employer] [facility], Inc.; [employer] 02-22-2020 09:18-0400 Systolic blood pressure 126 mm[Hg] Anayeli Dempseyzelalemphan h [facility] [employer] [facility], Inc.; [employer] 08-24-2019 08:02-0400 Body height 170.18 cm [facility]ri [facility]uckey [facility], Inc.; [employer] 08-24-2019 08:02-0400 Body mass index (BMI) [Ratio] 25.22 kg/m2 Torri [facility]uckey [facility], Inc.; [employer] 08-24-2019 08:02-0400 Body surface area Derived from formula 1.84 m2 Torri Mcnamarauckey PE[employer] SERVICE TECHNICIAN [employer] [facility], Inc.; [employer] 08-24-2019 08:02-0400 Body temperature 98.5 [degF] Torri [facility]uckey [facility], Inc.; [employer] 08-24-2019 08:02-0400 Body weight 73.03 kg Torri [facility]namarauckey [facility].; [employer], [employer]. 08-24-2019 08:02-0400 Diastolic blood pressure 78 mm[Hg] Torri Dove Clay [facility], Inc.; [employer] 08-24-2019 08:02-0400 Systolic blood pressure 118 mm[Hg] Torri Dove Keith cameron [facility], Inc.; [employer], [employer]. 02-09-2019 08:05-0400 Body height 170.18 cm Camille Caglekevin CHAPIN [facility], [employer].; [employer] 02-09-2019 08:05-0400 Body mass index (BMI) [Ratio] 25.69 kg/m2 Camille Cheemaerik CHAPIN [facility], [employer].; [employer] 02-09-2019 08:05-0400 Body surface area Derived from formula 1.86 m2 Camille Weerik CHAPIN [facility], [employer].; [employer] 02-09-2019 08:05-0400 Body weight 74.39 kg Camille Cheemaerik [facility] [employer] 02-09-2019 08:05-0400 Diastolic blood pressure 73 mm[Hg] Camille Weerik [facility].; [employer] 02-09-2019 08:05-0400 Heart rate 73 /min Camille Cheemaerik [facility] Inc.; [employer], [employer] 02-09-2019 08:05-0400 Systolic blood pressure 107 mm[Hg] Camille Caglekevin [facility].; [employer] 01-08-2019 16:19-0400 Body height 170.18 cm Bree Hung PA-C Work Phone: [employer].; [employer] 01-08-2019 16:19-0400 Body mass index (BMI) [Ratio] 25.84 kg/m2 Bree Hung PA-C Work Phone: [employer].; [employer] 01-08-2019 16:19-0400 Body surface area Derived from formula 1.86 m2 Bree Hung PA-C Work Phone: [employer].; [employer]. 01-08-2019 16:19-0400 Body temperature 98.8 [degF] Bree Hung PA-C Work Phone: [employer].; [employer]. 01-08-2019 16:19-0400 Body weight 74.84 kg Bree Hung PA-C Work Phone: [employer].; [employer]. 01-08-2019 16:19-0400 Diastolic blood pressure 84 mm[Hg] Bree Hung PA-C Work Phone: [employer].; [employer]. 01-08-2019 16:19-0400 Heart rate 102 /min Bree Hung PA-C Work Phone: [employer].; [employer]. 01-08-2019 16:19-0400 Inhaled oxygen concentration 20 % Bree Hung PA-C Work Phone: [employer].; [employer]. 01-08-2019 16:19-0400 SaO2% (BldA) [Mass fraction] 97 % Bree Hung PA-C Work Phone: [employer].; [employer]. 01-08-2019 16:19-0400 Systolic blood pressure 129 mm[Hg] Bree Hung P A-C Work Phone: [employer].; [employer]. 08-15-2018 09:05-0400 Body height 170.18 cm Bree J Hung PA-C Work Phone: [employer].; [employer]. 08-15-2018 09:05-0400 Body mass index (BMI) [Ratio] 26.63 kg/m2 Bree J Hung PA-C Work Phone: [employer].; [employer]. 08-15-2018 09:05-0400 Body surface area Derived from formula 1.89 m2 Bree J Hung PA-C Work Phone: [employer]; [employer]. 08-15-2018 09:05-0400 Body weight 77.11 kg Bree Hung PA-C Work Phone: [employer].; [employer]. 08-15-2018 09:05-0400 Diastolic blood pressure 64 mm[Hg] Bree Olivarezer PA-C Work Phone: [employer].; [employer] 08-15-2018 09:05-0400 Heart rate 76 /min Bree Hung PA-C Work Phone: [employer].; [employer]. 08-15-2018 09:05-0400 Systolic blood pressure 123 mm[Hg] Bree Olivarezer PA-C Work Phone: [employer].; [employer] 02-05-2018 10:13-0400 Body height 170.18 cm Camille Zaldivar LPN [employer] 02-05-2018 10:13-0400 Body mass index (BMI) [Ratio] 26.31 kg/m2 Camille Zaldivar LPN [employer], [employer]. 02-05-2018 10:13-0400 Body surface area Derived from formula 1.88 m2 Camille Zaldivar LPN [employer], [employer], [employer]. 02-05-2018 10:13-0400 Body weight 76.2 kg Camille Zaldivar LPN [employer], [employer], [employer] 02-05-2018 10:13-0400 Diastolic blood pressure 86 mm[Hg] Camille Zaldivar LPN [employer], [employer], [employer] 02-05-2018 10:13-0400 Heart rate 77 /min Camille Zaldivar LPN [employer], [employer], [employer] 02-05-2018 10:13-0400 Systolic blood pressure 119 mm[Hg] Camille Zaldivar LPN [employer], [employer].; [employer]. 08-28-2017 09:11-0400 Body height 172.72 cm Camille Zaldivar LPN [employer] [facility], Inc.; [facility], [employer] 08-28-2017 09:11-0400 Body mass index (BMI) [Ratio] 26.05 kg/m2 Camille Zaldivar LPN [place] [employer] [facility], Inc.; [employer] [employer], [employer] 08-28-2017 09:11-0400 Body surface area Derived from formula 1.91 m2 Camille Zaldivar LPN [place] [employer], [employer].; [facility], [employer] 08-28-2017 09:0400 Body weight 77.71 kg Camille Zen CHAPIN [facility], [facility].; [facility], [employer] 08-28-2017 09:[id number] Diastolic blood pressure 78 mm[Hg] Camille Zaldivar LPN [place] [employer] [facility], Inc.; [employer] [employer], [employer] 08-28-2017 09:110400 Heart rate 83 /min Camille Zaldivar LPN [place] [employer] [facility], Inc.; [employer] [employer], [employer]. 08-28-2017 09:11-0400 Systolic blood pressure 115 mm[Hg] Camille Zaldivar LPN [employer], [employer].; [facility], [employer] 03-01-2017 09:0400 Body height 172.72 cm Camille Zaldivar LPN [place] [employer] [facility], Inc.; [employer] [employer], [employer] 03-01-2017 09:-0400 Body mass index (BMI) [Ratio] 25.39 kg/m2 Camille Zaldivar LPN [facility], Inc.; [employer] [employer], [employer]. 03-01-2017 09:-0400 Body surface area Derived from formula 1.89 m2 Camille Zaldivar LPN [facility], [employer].; [facility], [employer] 03-01-2017 09:0400 Body weight 75.75 kg Camille Zaldivar LPN [employer], [employer].; [facility], [employer]. 03-01-2017 09:01-0400 Diastolic blood pressure 75 mm[Hg] Camille Zaldivar LPN [facility], Inc.; [employer], [employer] 03-01-2017 09:01-0400 Heart rate 71 /min Camille Zaldivar LPN [facility], Inc.; [employer], [employer] 03-01-2017 09:01-0400 Systolic blood pressure 111 mm[Hg] Camille Zaldivar LPN [facility], [facility].; [employer], [employer] 11-29-2016 11:36-0400 Body height 172.72 cm Camille Zaldivar LPN [facility], [employer].; [employer], [employer] 11-29-2016 11:36-0400 Body mass index (BMI) [Ratio] 25.85 kg/m2 Camille Zaldivar LPN [facility], [employer].; [employer], [employer] 11-29-2016 11:36-0400 Body surface area Derived from formula 1.91 m2 Camille Zaldivar LPN [facility], [employer].; [employer], [employer] 11-29-2016 11:36-0400 Body weight 77.11 kg Camille Zaldivar LPN [facility], [employer].; [employer], [employer] 11-29-2016 11:36-0400 Diastolic blood pressure 62 mm[Hg] Camille Zaldivar LPN [facility], [employer].; [employer], [employer] 11-29-2016 11:36-0400 Heart rate 80 /min Camille Zaldivar LPN [facility], [employer].; [employer], [employer] 11-29-2016 11:36-0400 Systolic blood pressure 109 mm[Hg] Camille Zaldivar LPN [facility], [employer].; [employer], [employer] 08-30-2016 16:12-0400 Body height 172.72 cm Camille Zaldivar LPN [facility], [employer].; [employer], [employer] 08-30-2016 16:12-0400 Body mass index (BMI) [Ratio] 26.15 kg/m2 Camille Zaldivar LPN [facility], [employer].; [employer], [employer] 08-30-2016 16:12-0400 Body surface area Derived from formula 1.92 m2 Camillesagrario Zaldivar LPN [facility], [employer].; [employer] 08-30-2016 16:12-0400 Body weight 78.02 kg Camille Zen CHAPIN [facility], [employer].; [employer], [employer] 08-30-2016 16:12-0400 Diastolic blood pressure 77 mm[Hg] Camille Zaldivar LPN [facility], [employer].; [employer], [employer] 08-30-2016 16:12-0400 Heart rate 78 /min Camille Denierik CHAPIN [facility], [employer].; [employer], [employer]. 08-30-2016 16:12-0400 Systolic blood pressure 124 mm[Hg] Camillesagrario Zaldivar LPN [facility], [employer].; [employer], [employer]. 07-24-2016 09:36-0400 Body temperature 98.2 [degF] Neilee L Vess PEST CONTROL SERVICE TECHNICIAN [facility], Inc.; [employer], [employer] 07-24-2016 09:36-0400 Body weight 79.83 kg Neilee L Vess PEST CONTROL SERVICE TECHNICIAN [employer], [employer].; [employer], [employer]. 07-24-2016 09:36-0400 Diastolic blood pressure 84 mm[Hg] Neilee L Vess PEST CONTROL SERVICE TECHNICIAN [facility], Inc.; [employer], [employer]. 07-24-2016 09:36-0400 Heart rate 90 /min Tatailee L Vess PEST CONTROL SERVICE TECHNICIAN [facility], Inc.; [employer], [employer] 07-24-2016 09:36-0400 Systolic blood pressure 141 mm[Hg] Neilee L Vess PEST CONTROL SERVICE TECHNICIAN [employer], [employer].; [employer]. 03-16-2016 15:39-0500 Body height 172.72 cm Danni Talamantes LPN [facility], [employer].; [employer]. 03-16-2016 15:39-0500 Body mass index (BMI) [Ratio] 25.7 kg/m2 Danni Talamantes LPN [facility], [employer].; [employer]. 03-16-2016 15:39-0500 Body surface area Derived from formula 1.9 m2 Danni Talamantes LPN [employer].; [employer]. 03-16-2016 15:39-0500 Body weight 76.66 kg Danni Talamantes LPN [employer].; [employer]. 03-01-2016 10:03-0400 Body height 172.72 cm Bree Jon Hung PA-C Work Phone: [employer].; [employer]. 03-01-2016 10:03-0400 Body mass index (BMI) [Ratio] 26.76 kg/m2 Bree Webb Hung PA-C Work Phone: [employer].; [employer]. 03-01-2016 10:03-0400 Body surface area Derived from formula 1.94 m2 Bree Jon Hung PA-C Work Phone: [employer].; [employer]. 03-01-2016 10:030400 Body weight 79.83 kg Bree Webb Hung PA-C Work Phone: [employer].; [employer]. 06-02-2015 15:07-0500 Body height 172.72 cm Mehnaz Oro RN [employer].; [employer]. 06-02-2015 15:07-0500 Body mass index (BMI) [Ratio] 27.51 kg/m2 Mehnaz Oro RN [employer].; [employer]. 06-02-2015 15:07-0500 Body surface area Derived from formula 1.96 m2 Mehnaz Oro RN [employer].; [employer]. 06-02-2015 15:07-0500 Body weight 82.06 kg Mehnaz Oro RN [employer].; [employer]. 06-02-2015 15:07-0500 Diastolic blood pressure 84 mm[Hg] [facility].; [facility]. 06-02-2015 15:07-0500 Inhaled oxygen concentration 20 % Mehnaz Oro [facility].; [employer] [facility]. 06-02-2015 15:07-0500 SaO2% (BldA) [Mass fraction] 99 % [facility]hn[facility]ro [facility].; [employer]. 06-02-2015 15:07-0500 Systolic blood pressure 138 mm[Hg] Mehnaz santamaria RN [place] [employer] [facility].; [employer]. 10-11-2014 09:22-0400 Body height 172.72 cm Danni Talamantes LPN [place] [employer] [facility].; [employer]. 10-11-2014 09:22-0400 Body mass index (BMI) [Ratio] 26.91 kg/m2 Danni Talamantes LPN [place] [employer] [facility].; [employer]. 10-11-2014 09:22-0400 Body surface area Derived from formula 1.94 m2 Danni Talamantes LPN [place] [facility] [facility].; [employer] [facility]. 10-11-2014 09:22-0400 Body weight 80.29 kg Danni Talamantes LPN [place] [employer] [facility].; [employer] [facility]. 10-11-2014 09:22-0400 Diastolic blood pressure 70 mm[Hg] Danni Talamantes LPN [place] [facility] [facility].; [employer]. 10-11-2014 09:22-0400 Systolic blood pressure 114 mm[Hg] Danni naik LPN [facility].; [employer]. 09-07-2014 09:19-0400 Body height 172.72 cm Mehnaz Oro RN [place] [employer] [facility].; [employer]. 09-07-2014 09:19-0400 Body mass index (BMI) [Ratio] 26.99 kg/m2 Mehnaz Oro RN [place] [employer] [facility].; [employer]. 09-07-2014 09:19-0400 Body surface area Derived from formula 1.94 m2 Mehnaz Oro RN [place] [employer] [facility].; [employer]. 09-07-2014 09:19-0400 Body weight 80.51 kg Mehnaz Oro RN [place] [employer] [facility].; [employer]. 09-07-2014 09:19-0400 Diastolic blood pressure 84 mm[Hg] Mehnaz Oro RN [place] [employer] [facility].; [employer]. 09-07-2014 09:19-0400 Heart rate 82 /min Mehnaz Oro RN [place] [employer] [facility].; [employer]. 09-07-2014 09:19-0400 Inhaled oxygen concentration 20 % Mehnaz Oro RN [place] [employer] [facility].; [employer]. 09-07-2014 09:19-0400 SaO2% (BldA) [Mass fraction] 98 % Mehnaz Oro RN [place] [employer] [facility].; [employer]. 09-07-2014 09:19-0400 Systolic blood pressure 122 mm[Hg] Mehnaz santamaria RN [facility].; [employer]. 06-18-2014 09:21-0500 Body temperature 96.9 [degF] Camille Zaldivar LPN [facility].; [employer]. 06-18-2014 09:21-0500 Body weight 78.93 kg Camille Zaldivar LPN [facility].; [employer]. 06-18-2014 09:21-0500 Diastolic blood pressure 72 mm[Hg] Camille Zaldivar LPN [employer].; [employer]. 06-18-2014 09:21-0500 Heart rate 89 /min Camille Zaldivar LPN [employer].; [employer]. 06-18-2014 09:21-0500 Inhaled oxygen concentration 20 % Camille Zaldivar LPN [employer].; [employer]. 06-18-2014 09:21-0500 SaO2% (BldA) [Mass fraction] 98 % Camille Zaldivar LPN [facility].; [employer]. 06-18-2014 09:21-0500 Systolic blood pressure 112 mm[Hg] Camille Zaldivar LPN [employer].; [employer] 01-25-2014 08:19-0400 Body height 171.45 cm Asmita Vivar RN Work Phone: [employer].; [employer]. 01-25-2014 08:19-0400 Body mass index (BMI) [Ratio] 26.54 kg/m2 Asmita Vivar RN Work Phone: [employer].; [employer]. 01-25-2014 08:19-0400 Body surface area Derived from formula 1.91 m2 Asmita Vivar RN Work Phone: [employer].; [employer]. 01-25-2014 08:19-0400 Body weight 78.02 kg Asmita Vivar RN Work Phone: [employer].; [employer]. 01-25-2014 08:19-0400 Diastolic blood pressure 78 mm[Hg] Asmita Vivar RN Work Phone: [employer].; [employer]. 01-25-2014 08:19-0400 Heart rate 82 /min Asmita Vivar RN Work Phone: [employer].; [employer]. 01-25-2014 08:19-0400 Systolic blood pressure 118 mm[Hg] Asmita Arcos Work Phone: [employer].; [employer]. 07-22-2013 11:140400 Body height 171.45 cm Asmita Vivar RN Work Phone: [employer].; [employer]. 07-22-2013 11:14-0400 Body mass index (BMI) [Ratio] 27 kg/m2 Asmita Vivar RN Work Phone: [employer].; [employer]. 07-22-2013 11:14-0400 Body surface area Derived from formula 1.92 m2 Asmita Vivar RN Work Phone: [employer].; [employer]. 07-22-2013 11:14-0400 Body weight 79.38 kg Asmita Vivar RN Work Phone: [employer].; [employer]. 07-22-2013 11:14-0400 Diastolic blood pressure 86 mm[Hg] Asmita Vivar RN Work Phone: [employer].; [employer]. 07-22-2013 11:14-0400 Heart rate 68 /min Asmita Vivar RN Work Phone: [employer].; [employer]. 07-22-2013 11:14-0400 Systolic blood pressure 118 mm[Hg] Asmita Arcos Work Phone: [employer].; [employer]. 06-06-2013 11:36-0500 Body temperature 97.7 [degF] Torri [facility]ove [facility] [employer]. 06-06-2013 11:36-0500 Body weight 79.38 kg [facility] Marshallberg LPN [employer].; [employer]. 06-06-2013 11:36-0500 Inhaled oxygen concentration 20 % Conchita Marshallberg LPN [employer].; [employer]. 06-06-2013 11:36-0500 SaO2% (BldA) [Mass fraction] 98 % [facility] Marshallberg LPN [employer].; [employer]. 05-26-2013 08:36-0500 Body height 171.45 cm Asmita Vivar RN Work Phone: [employer].; [employer] 05-26-2013 08:36-0500 Body mass index (BMI) [Ratio] 27 kg/m2 Asmita Vivar RN Work Phone: [employer].; [employer] 05-26-2013 08:36-0500 Body surface area Derived from formula 1.92 m2 Asmita Vivar RN Work Phone: [employer].; [employer] 05-26-2013 08:36-0500 Body temperature 98.1 [degF] Asmita Vivar RN Work Phone: [employer].; [employer] 05-26-2013 08:36-0500 Body weight 79.38 kg Asmita Vivar RN Work Phone: [employer].; [employer] 05-26-2013 08:36-0500 Diastolic blood pressure 80 mm[Hg] Asmita Vivar RN Work Phone: [employer].; [employer] 05-26-2013 08:36-0500 Heart rate 87 /min Asmita Vivar RN Work Phone: [employer].; [employer] 05-26-2013 08:36-0500 Systolic blood pressure 116 mm[Hg] Asmita Arcos Work Phone: [employer].; [employer] 05-14-2013 13:39-0500 Body height 171.45 cm Bree Hung PA-C Work Phone: [employer].; [employer] 05-14-2013 13:39-0500 Diastolic blood pressure 79 mm[Hg] Bree GARCIA-C Work Phone: [employer].; [employer] 05-14-2013 13:39-0500 Heart rate 78 /min Bree Hung PA-C Work Phone: [employer].; [employer] 05-14-2013 13:39-0500 Systolic blood pressure 132 mm[Hg] Bree Hung PA-C Work Phone: [employer]. 02-02-2013 08:09-0400 Body height 171.45 cm Camille Zaldivar LPN [employer].; [employer]. 02-02-2013 08:09-0400 Body mass index (BMI) [Ratio] 25.98 kg/m2 [facility]ille [facility].; [employer]. 02-02-2013 08:09-0400 Body surface area Derived from formula 1.89 m2 Camille [facility]aldivar [facility].; [employer]. 02-02-2013 08:09-0400 Body temperature 97.2 [degF] Camillesagrario Zaldivar [facility].; [employer]. 02-02-2013 08:09-0400 Body weight 76.37 kg Camille Zaldivar LPN [employer].; [employer]. 02-02-2013 08:09-0400 Diastolic blood pressure 82 mm[Hg] Camille [facility] [employer]. 02-02-2013 08:09-0400 Heart rate 89 /min Camille [facility]ar [facility] [employer]. 02-02-2013 08:09-0400 Inhaled oxygen concentration 20 % Camille [facility]divar [facility] [employer]. 02-02-2013 08:09-0400 SaO2% (BldA) [Mass fraction] 99 % Camille [facility]ar [facility].; [employer]. 02-02-2013 08:09-0400 Systolic blood pressure 110 mm[Hg] Camille Zaldivar LPN [employer].; [employer]. 01-23-2013 11:04-0400 Body height 171.45 cm Asmita Vivar RN Work Phone: [employer].; [employer]. 01-23-2013 11:04-0400 Body mass index (BMI) [Ratio] 26.08 kg/m2 Asmita Vivar RN Work Phone: [employer].; [employer] 01-23-2013 11:04-0400 Body surface area Derived from formula 1.89 m2 Asmita Vivar RN Work Phone: [employer].; [employer]. 01-23-2013 11:04-0400 Body weight 76.66 kg Asmita Vivar RN Work Phone: [employer].; [employer]. 01-23-2013 11:04-0400 Diastolic blood pressure 62 mm[Hg] Asmita Vivar RN Work Phone: [employer].; [employer]. 01-23-2013 11:04-0400 Heart rate 92 /min Asmita Vivar RN Work Phone: [employer].; [employer] 01-23-2013 11:04-0400 Systolic blood pressure 118 mm[Hg] Asmita Arcos Work Phone: [employer].; [employer]. 10-16-2012 11:47-0400 Body height 171.45 cm Sigrid Ward RN [employer].; [employer]. 10-16-2012 11:47-0400 Body mass index (BMI) [Ratio] 26.63 kg/m2 Sigrid Ward RN [employer].; [employer]. 10-16-2012 11:47-0400 Body surface area Derived from formula 1.91 m2 Sigrid Ward RN [employer].; [employer]. 10-16-2012 11:47-0400 Body temperature 97.9 [degF] Sigrid Ward RN [employer].; [employer]. 10-16-2012 11:47-0400 Body weight 78.29 kg Sigrid Ward RN [employer].; [employer]. 10-16-2012 11:47-0400 Diastolic blood pressure 76 mm[Hg] Sigrid Ward RN [employer] 10-16-2012 11:47-0400 Systolic blood pressure 114 mm[Hg] Sigrid Ward RN [employer] 08-22-2012 11:32-0400 Body height 171.45 cm Asmita Vivar RN Work Phone: [employer].; [employer]. 08-22-2012 11:32-0400 Body mass index (BMI) [Ratio] 27 kg/m2 Asmita Vivar RN Work Phone: [employer].; [employer]. 08-22-2012 11:32-0400 Body surface area Derived from formula 1.92 m2 Asmita Vivar RN Work Phone: [employer].; [employer] 08-22-2012 11:32-0400 Body weight 79.38 kg Asmita Vivar RN Work Phone: [employer].; [employer]. 08-22-2012 11:32-0400 Diastolic blood pressure 74 mm[Hg] Asmita Vivar RN Work Phone: [employer].; [employer]. 08-22-2012 11:32-0400 Heart rate 82 /min Asmita Vivar RN Work Phone: [employer].; [employer]. 08-22-2012 11:32-0400 Systolic blood pressure 112 mm[Hg] Asmita Arcos Work Phone: [employer].; [employer]. 07-03-2012 14:23-0500 Body height 171.45 cm Anayeli Chanel MD Work Phone: [employer].; [employer]. 07-03-2012 14:23-0500 Diastolic blood pressure 72 mm[Hg] Anayeli Chanel MD Work Phone: [employer].; [employer]. 07-03-2012 14:23-0500 Heart rate 90 /min Anayeli Chanel MD Work Phone: [employer].; [employer]. 07-03-2012 14:23-0500 Systolic blood pressure 134 mm[Hg] Anayeli Chanel MD Work Phone: [employer].; [employer]. 04-11-2012 08:55-0500 Body height 171.45 cm [facility] [employer]. 04-11-2012 08:55-0500 Body mass index (BMI) [Ratio] 26.85 kg/m2 [facility]eli Fernandez [facility].; [employer]. 04-11-2012 08:55-0500 Body surface area Derived from formula 1.92 m2 Anayeli Fernandez LPN [employer].; [employer]. 04-11-2012 08:55-0500 Body weight 78.93 kg Anayeli Fernandez PEST CONTROL SERVICE TECHNICIAN [employer]. 04-11-2012 08:55-0500 Diastolic blood pressure 80 mm[Hg] Anayeli Fernandez LPN [employer]. 04-11-2012 08:55-0500 Heart rate 79 /min Anayeli Fernandez LPN [employer]. 04-11-2012 08:55-0500 Systolic blood pressure 122 mm[Hg] Anayeli benjamin LPN [employer]. 04-01-2012 11:57-0500 Body temperature 98.4 [degF] Cyndi Piper PEST CONTROL SERVICE TECHNICIAN [employer]. 04-01-2012 11:57-0500 Diastolic blood pressure 66 mm[Hg] Tatailee Petra Piper PEST CONTROL SERVICE TECHNICIAN [email or web address]. 04-01-2012 11:57-0500 Heart rate 82 /min Neilee Petra Piper PEST CONTROL SERVICE TECHNICIAN [email or web address] 04-01-2012 11:57-0500 Systolic blood pressure 142 mm[Hg] Neilee L Vess PEST CONTROL SERVICE TECHNICIAN [email or web address] 12-21-2011 09:00-0400 Body height 171.45 cm Asmita Vivar RN Work Phone: [employer]. 12-21-2011 09:00-0400 Body mass index (BMI) [Ratio] 27 kg/m2 Asmita Vivar RN Work Phone: [employer]. 12-21-2011 09:00-0400 Body surface area Derived from formula 1.92 m2 Asmita Vivar RN Work Phone: [employer]. 12-21-2011 09:00-0400 Body weight 79.38 kg Asmita Vivar RN Work Phone: [employer] 12-21-2011 09:00-0400 Diastolic blood pressure 80 mm[Hg] Asmita Vivar RN Work Phone: [employer]. 12-21-2011 09:00-0400 Heart rate 76 /min Asmita Vivar RN Work Phone: [employer]. 12-21-2011 09:00-0400 Systolic blood pressure 124 mm[Hg] Asmita Arcos Work Phone: [employer] 10-12-2011 09:57-0400 Body height 171.45 cm Anayeli Chanel MD Work Phone: [employer]. 10-12-2011 09:57-0400 Body mass index (BMI) [Ratio] 27.16 kg/m2 Anayeli Chanel MD Work Phone: [employer]. 10-12-2011 09:57-0400 Body surface area Derived from formula 1.93 m2 Anayeli Chanel MD Work Phone: [employer]. 10-12-2011 09:57-0400 Body weight 79.83 kg Anayeli Chanel MD Work Phone: [employer]. 10-12-2011 09:57-0400 Diastolic blood pressure 88 mm[Hg] Anayeli Chanel MD Work Phone: [employer]. 10-12-2011 09:57-0400 Heart rate 74 /min Anayeli Chanel MD Work Phone: [employer]. 10-12-2011 09:57-0400 Systolic blood pressure 140 mm[Hg] Anayeli Chanel MD Work Phone: [employer]. 06-11-2011 09:21-0500 Body height 171.45 cm Sigrid Ward RN [employer]. 06-11-2011 09:21-0500 Body mass index (BMI) [Ratio] 27.16 kg/m2 Sigrid Ward RN [employer]. 06-11-2011 09:21-0500 Body surface area Derived from formula 1.93 m2 Sigrid Ward RN [employer] 06-11-2011 09:21-0500 Body temperature 98.1 [degF] Sigrid Ward RN [employer]. 06-11-2011 09:21-0500 Body weight 79.83 kg Sigrid Ward RN [employer] 06-11-2011 09:21-0500 Diastolic blood pressure 77 mm[Hg] Sigrid Ward RN [employer] [facility].; [employer]. 06-11-2011 09:21-0500 Heart rate 93 /min Sigrid Ward RN [employer] [facility].; [employer]. 06-11-2011 09:21-0500 Inhaled oxygen concentration 20 % Sigrid Ward RN [employer] [facility].; [employer]. 06-11-2011 09:21-0500 SaO2% (BldA) [Mass fraction] 99 % Sigrid Ward RN [employer]. 06-11-2011 09:21-0500 Systolic blood pressure 118 mm[Hg] Sigrid Ward RN [employer]. 03-19-2011 12:56-0500 Body height 171.45 cm Asmita Vivar RN Work Phone: [employer]. 03-19-2011 12:56-0500 Body mass index (BMI) [Ratio] 27.1 kg/m2 Asmita Vivar RN Work Phone: [employer]. 03-19-2011 12:56-0500 Body surface area Derived from formula 1.92 m2 Asmita Vivar RN Work Phone: [employer]. 03-19-2011 12:56-0500 Body weight 79.65 kg Asmita Vivar RN Work Phone: [employer]. 03-19-2011 12:56-0500 Diastolic blood pressure 92 mm[Hg] Asmita Vivar RN Work Phone: [employer] 03-19-2011 12:56-0500 Heart rate 86 /min Asmita Vivar RN Work Phone: [employer] 03-19-2011 12:56-0500 Systolic blood pressure 134 mm[Hg] Asmita Arcos Work Phone: [employer] 01-25-2011 11:57-0400 Body height 171.45 cm Mirella Tommy PEST CONTROL SERVICE TECHNICIAN Work Phone: [employer] 01-25-2011 11:57-0400 Body mass index (BMI) [Ratio] 26.7 kg/m2 Mirella Tommy PEST CONTROL SERVICE TECHNICIAN Work Phone: [employer] 01-25-2011 11:57-0400 Body surface area Derived from formula 1.91 m2 Mirella Tommy PEST CONTROL SERVICE TECHNICIAN Work Phone: [employer] 01-25-2011 11:57-0400 Body weight 78.47 kg Mirella Tommy PEST CONTROL SERVICE TECHNICIAN Work Phone: [employer].; [employer] 01-25-2011 11:57-0400 Diastolic blood pressure 98 mm[Hg] Mirella Tommy PEST CONTROL SERVICE TECHNICIAN Work Phone: [employer].; [employer] 01-25-2011 11:57-0400 Heart rate 83 /min Mirella Tommy PEST CONTROL SERVICE TECHNICIAN Work Phone: [employer] 01-25-2011 11:57-0400 Systolic blood pressure 140 mm[Hg] Mirella Tommy PEST CONTROL SERVICE TECHNICIAN Work Phone: [employer] 01-03-2011 09:22-0400 Body height 171.45 cm [facility] [employer] 01-03-2011 09:22-0400 Body mass index (BMI) [Ratio] 27 kg/m2 [facility] [employer] 01-03-2011 09:22-0400 Body surface area Derived from formula 1.92 m2 Torri Williamson PEST CONTROL SERVICE TECHNICIAN [employer] 01-03-2011 09:22-0400 Body temperature 96.4 [degF] Torri Williamson PEST CONTROL SERVICE TECHNICIAN [employer] 01-03-2011 09:22-0400 Body weight 79.38 kg Torri Williamson PEST CONTROL SERVICE TECHNICIAN [employer] [employer] 01-03-2011 09:22-0400 Diastolic blood pressure 96 mm[Hg] Torri Williamson [facility] [employer] 01-03-2011 09:22-0400 Heart rate 76 /min [facility]ri Williamson [facility] [employer] 01-03-2011 09:22-0400 Systolic blood pressure 164 mm[Hg] Torri Negrete PEST CONTROL SERVICE TECHNICIAN [email or web address] 12-26-2010 15:23-0400 Body height 171.45 cm Mirella Tommy PEST CONTROL SERVICE TECHNICIAN Work Phone: [employer] 12-26-2010 15:23-0400 Body mass index (BMI) [Ratio] 27 kg[facility]m2 [facility] PEST CONTROL SERVICE TECHNICIAN Work Phone: [employer] 12-26-2010 15:23-0400 Body surface area Derived from formula 1.92 m2 Mirella Tommy PEST CONTROL SERVICE TECHNICIAN Work Phone: [employer] 12-26-2010 15:23-0400 Body weight 79.38 kg Mirella Tommy PEST CONTROL SERVICE TECHNICIAN Work Phone: [employer] 12-26-2010 15:23-0400 Diastolic blood pressure 104 mm[Hg] Mirella Tommy PEST CONTROL SERVICE TECHNICIAN Work Phone: [employer] 12-26-2010 15:23-0400 Heart rate 68 /min Mirella Sanders PEST CONTROL SERVICE TECHNICIAN Work Phone: [employer].; [employer] 12-26-2010 15:23-0400 Systolic blood pressure 163 mm[Hg] Mirella Sanders PEST CONTROL SERVICE TECHNICIAN Work Phone: [employer] 12-23-2010 08:38-0400 Diastolic blood pressure 109 mm[Hg] Anayeli Fernandez LPN [email or web address] 12-23-2010 08:38-0400 Heart rate 100 /min Anayeli Fernandez LPN [facility] 12-23-2010 08:38-0400 Systolic blood pressure 157 mm[Hg] Anayeli benjamin LPN [email or web address] 11-13-2010 13:03-0400 Diastolic blood pressure 90 mm[Hg] Sigrid Ward RN [employer] 11-13-2010 13:03-0400 Systolic blood pressure 138 mm[Hg] Sigrid Ward RN [employer] 11-09-2010 10:32-0400 Body temperature 99.4 [degF] Camille Zaldivar LPN [email or web address]. 11-09-2010 10:32-0400 Body weight 78.02 kg Camille Zaldivar LPN [employer]. 11-09-2010 10:32-0400 Diastolic blood pressure 91 mm[Hg] Camille Zaldivar LPN [employer] 11-09-2010 10:32-0400 Heart rate 102 /min Camille Zaldivar LPN [email or web address]. 11-09-2010 10:32-0400 Inhaled oxygen concentration 20 % Camille Cagleerd PEST CONTROL SERVICE TECHNICIAN [employer] [facility].; [email or web address] [facility]. 11-09-2010 10:32-0400 SaO2% (BldA) [Mass fraction] 95 % Camille Denierik CHAPIN [employer] [facility].; [employer]. 11-09-2010 10:32-0400 Systolic blood pressure 141 mm[Hg] Camille Zaldivar LPN [employer] [facility].; [employer]. 11-04-2010 10:29-0400 Body temperature 99.3 [degF] Anayeli Chanel MD Work Phone: [employer].; [employer] 11-04-2010 10:29-0400 Diastolic blood pressure 102 mm[Hg] Anayeli Chanel MD Work Phone: [employer] 11-04-2010 10:29-0400 Heart rate 104 /min Anayeli Chanel MD Work Phone: [email or web address] [facility].; [employer]. 11-04-2010 10:29-0400 Systolic blood pressure 164 mm[Hg] Anayeli Chanel MD Work Phone: [employer]. 04-06-2010 08:21-0500 Body temperature 97.4 [degF] Sigrid Ward RN [employer]. 04-06-2010 08:21-0500 Body weight 79.29 kg Sigrid Ward RN [email or web address] [facility].; [employer]. 04-06-2010 08:21-0500 Diastolic blood pressure 83 mm[Hg] Sigrid Ward RN [employer]. 04-06-2010 08:21-0500 Heart rate 85 /min Sigrid Ward RN [employer]. 04-06-2010 08:21-0500 Systolic blood pressure 141 mm[Hg] Sigrid Ward RN [employer] 04-04-2010 21:07-0500 Body temperature 97.6 [degF] Gene Tijerina MD Work Phone: [employer] 04-04-2010 21:07-0500 Diastolic blood pressure 85 mm[Hg] Gene Tijerina MD Work Phone: [employer] 04-04-2010 21:07-0500 Heart rate 89 /min Gene Tijerina MD Work Phone: [employer] 04-04-2010 21:07-0500 Respiratory rate 16 /min Gene Tijerina MD Work Phone: [employer] 04-04-2010 21:07-0500 Systolic blood pressure 142 mm[Hg] Gene Tijerina MD Work Phone: [employer] 03-31-2010 11:11-0500 Body weight 78.93 kg Shelly Palma LPN [employer] 03-31-2010 11:11-0500 Diastolic blood pressure 81 mm[Hg] Shelly Palma LPN [employer] 03-31-2010 11:11-0500 Heart rate 77 /min Shelly Palma LPN [employer] 03-31-2010 11:11-0500 Systolic blood pressure 146 mm[Hg] Shelly Palma LPN [employer] Encounters Encounter Date Encounter Type Care Provider Facility Start: 05-02-2023 End: 05-02-2023 ambulatory BREE HUNG [facility] Start: 04-24-2023 End: 04-24-2023 Bree Hung PA-C Work Phone: [employer]. Start: 04-22-2023 End: 04-22-2023 [facility] Start: 04-18-2023 End: 04-18-2023 ambulatory BREE HUNG [facility] Start: 04-12-2023 End: 04-12-2023 Bree Hung PA-C Work Phone: [facility] Start: 03-14-2023 Telephone encounter Barron angulo MD [...] neg, no plan reqd Bree Webb Juanis er PA-C Work Phone: Start: 02-15-2023 End: 04-22-2023 Screening digital breast tomosynthesis bi Bree Webb Hung PA-C Work Phone: Start: 07-25-2022 End: 08-01-2022 Ecg routine ecg w/least 12 lds i&r only Bree Hung PA-C Work Phone: Start: 01-17-2022 End: 01-17-2022 Adv care pln/ no alt dcsn mkr docd or refusal Bree Hung PA-C Work Phone: Start: 01-17-2022 End: 01-17-2022 Depression screening Bree Hung PA -C Work Phone: Start: 01-17-2022 End: 01-17-2022 Falls risk assessment documented Bree GARCIA-C Work Phone: Start: 01-17-2022 End: 01-17-2022 Lab findings surveillance Burton Gutierrez L PN Start: 01-17-2022 End: 01-17-2022 PPPS, subseq visit Bree Hung JOSE- C Work Phone: Start: 01-17-2022 End: 01-17-2022 Pt falls assess docd w/o fall/injury past year Bree Hung PA-[employer] Work Phone: Start: 01-17-2022 End: 01-17-2022 Scr dep neg, no plan reqd Bree francois PA-[employer] Work Phone: Start: 01-17-2022 End: 01-17-2022 Burton Matt PEST CONTROL SERVICE TECHNICIAN Start: 01-31-2021 End: 01-31-2021 Examination of retina Burton Matt PEST CONTROL SERVICE TECHNICIAN Start: 02-22-2020 End: 02-22-2020 Depression screening Bree Hung PA -[employer] Work Phone: Start: 02-22-2020 End: 02-22-2020 Scr dep neg, no plan reqd Bree francois PA-[employer] Work Phone: Start: 10-05-2019 End: 10-05-2019 Screening for malignant neoplasm of large intestine Burton Matt PEST CONTROL SERVICE TECHNICIAN Start: 08-24-2019 End: 08-24-2019 Burton Matt PEST CONTROL SERVICE TECHNICIAN Start: 02-09-2019 End: 02-09-2019 Depression screening Bree Hung PA -[employer] Work Phone: Start: 02-09-2019 End: 02-09-2019 Microscopic examination of cervical Papanicolaou smear Burton Gutierrez DARI Start: 02-09-2019 End: 02-09-2019 Burton Gutierrez PEST CONTROL SERVICE TECHNICIAN Start: 08-15-2018 End: 08-15-2018 Destruction premalignant lesion 1st Bree Webb Hung PA-C Work Phone: Start: 02-05-2018 End: 02-05-2018 Most recent hemoglobin a1c level gt 7.0-9.0 % Bree Webb Hung PA-C Work Phone: Start: 08-28-2017 End: 08-28-2017 Body mass index documented Bree Webb Pal prasanth PA-C Work Phone: Start: 08-28-2017 End: 08-28-2017 Most recent diastolic blood pressure < 80 mm hg Bree Webb Hung PA-C Work Phone: Start: 08-28-2017 End: 08-28-2017 Most recent systolic blood pressure <130 mm hg Bree Webb Hung PA-C Work Phone: Start: 01-04-2017 End: 01-04-2017 Burton Gutierrez PEST CONTROL SERVICE TECHNICIAN Start: 12-26-2016 End: 12-26-2016 Ecg routine ecg w/least 12 lds i&r only Bree Webb Hung PA-C Work Phone: Start: 03-21-2016 End: 03-21-2016 Screening mammography Burton Gutierrez DARI Start: 03-16-2016 End: 03-16-2016 Destruction premalignant lesion 1st Abdirahman Mathews MD Work Phone: Start: 03-01-2016 End: 06-13-2016 Mammogram, screening Bree Webb Hung PA -C Work Phone: Start: 10-15-2014 End: 10-15-2014 Removal sutures under anesthesia same surgeon FLOAT NURSE Start: 10-11-2014 End: 10-11-2014 Exc b9 lesion mrgn xcp sk tg s/n/h/f/g 0.5 cm/< Anayeli Chanel MD Work Phone: Start: 09-07-2014 End: 10-18-2014 Mammogram, screening Anayeli Chanel MD Work Phone: Start: 07-22-2013 End: 07-22-2013 Removal skn tags infertility nurse fibrq tags any area upw/15 Anayeli Chanel [...] Phone: Start: 11-26-2011 End: 02-28-2012 Mammogram, screening Anayeil Chanel MD Work Phone: Start: 12-20-2010 End: 12-26-2010 Mammogram, screening Anayeli Chanel MD Work Phone: Start: 11-22-2010 End: 11-22-2010 Pressurized/nonpressurized inhalation treatment Anayeli Chanel MD Work Phone: Start: 07-31-2010 End: 07-31-2010 Dexamethasone sodium phos Abdirahman Mathews MD Work Phone: Start: 05-06-2001 End: 05-06-2001 Burton Gutierrez LPN Plan of Treatment Date Care Activity Detail Author Start: [facility] Start: 05-13-2023 [facility] Start: 05-06-[address]. Start: 05-06-2023 Lipid panel [employer]; [employer]. Start: 04-12-2023 End: 04-19-2023 Xtrnl pt activ ecg transmis w/r&i 30 days [employer]; [employer]. Start: 02-15-2023 Blood occult fecal hgb deter ia qual feces 1-3 [facility] [employer]; [employer]. Start: 01-04-2023 Influenza [facility] Start: 05-06-2022 Advance Directive Discussion Advance Directive Discussion [facility] Start: 05-06-2022 Depression Assessment Depression Assessment [facility] Start: 01-17-2022 Dxa bone density study 1/ sites axial skel [facility] [employer]; [employer]. Start: 01-17-2022 Screening digital breast tomosynthesis bi [employer]; [employer]. Start: 07-19-2021 Cyanocobalamin vitamin b-12 [facility] [employer]; [employer]. Start: 11-13-2020 Bone Density Screening Bone Density Screening [facility] Start: 11-13-2020 Pneumococcal Vaccine: 65+ (1 - PCV) Pneumococcal Vaccine: 65+ (1 - PCV) [facility] Start: 02-05-2018 Screening mammography bi 2-view breast inc cad [employer]; [employer]. Start: 2015 RSV Vaccine (1 - 1-dose 60+ series) RSV Vaccine (1 - 1-dose 60+ series) [facility] Start: 11-13-2005 Shingrix Vaccine (1 of 2) Shingrix Vaccine (1 of 2) [facility] Start: 11-13-2000 Cologuard (FIT-DNA) Cologuard (FIT-DNA) [facility] Start: 11-13-2000 Colonoscopy Colonoscopy [facility] Start: 11-13-2000 Colorectal Cancer Screening Colorectal Cancer Screening [facility] Start: 11-13-[address] Colonography [facility] Start: 11-13-2000 Diabetes Screening Diabetes Screening [facility] Start: 11-13-2000 Fecal Occult Blood Fecal Occult Blood [facility] Start: 11-13-2000 Lipid 1996 panel - Serum or Plasma Lipid Screening [facility] Start: 11-13-2000 Sigmoidoscopy Sigmoidoscopy [facility] Start: 1995 Mammography Mammogram Screening [facility] Start: 11-13-1974 Urine microalbumin profile DTaP,Tdap,Td Vaccine (1 - Tdap) [facility] Start: 11-13-1973 Hepatitis C Screening Hepatitis C Screening [facility] Start: 05-16-1956 Covid-19 Vaccine (#1) Covid-19 Vaccine (#1) [facility] [employer] [facility] Immunizations Immunization Date Immunization Notes Care Provider Fa rickie 02-20-2023 Bree Hung PA-C Work Phone: [facility] [employer] 02-09-2019 TD(adult) unspecifie d formulation Bree Hung PA-C Work Phone: [facility] [employer]. 02-09-2019 influenza, injectabl e, quadrivalent, contains preservative Bree Hung PA-C Work Phone: [employer] 02-05-2018 influenza, injectabl e, quadrivalent, contains preservative Bree Hung PA-C Work Phone: [employer] 03-01-2017 influenza, injectabl e, quadrivalent, contains preservative Bree Hung PA-C Work Phone: [employer] 03-16-2016 influenza, injectabl e, quadrivalent, contains preservative Bree Hung PA-C Work Phone: [employer] 03-16-2016 unknown vaccine or immune globulin Bree Hung PA-C Work Phone: [employer]. 06-02-2015 influenza, seasonal, injectable Bree Hung PA-C Work Phone: [employer]; [facility] [facility]. 11-28-2007 tetanus toxoid, reduced diphtheria toxoid, and acellular pertussis vaccine, adsorbed Bree Hung PA-C Work Phone: [facility]; [employer]. influenza virus vaccine, unspecified formulation Bree Hung PA-C Work Phone: [employer]; [employer]. NEGATED: Highlighted row has not occurred!02-09-2019 TD(adult) unspecified formulation Bree Hung PA-C Work Phone: [employer]; [employer]. NEGATED: Highlighted row has not occurred! influenza, seasonal, injectable Bree Hung PA-C Work Phone: [employer]; [employer]. Payers Date Payer Category Payer Unknown [id number] 2021 Unknown [id number] 1955 Unknown [id number] 1955 Unknown [id number] 1955 Unknown [id number] Medicare [id number] Social History Date Type Detail Facility Tobacco smoking status KSIS Tobacco smoking consumption unknown [facility] Start: 1955 Sex Assigned At Not on file [facility] Start: 03-07-2023 Gender identity Not on file [facility] Start: 03-07-2023 Tobacco smoking status KSIS Never smoked tobacco [facility] Start: 03-07-2023 Tobacco use and exposure Smokeless tobacco non-user [facility] Start: 03-07-2023 Alcohol intake Lifetime non-d jacque (finding) [facility] Start: 03-07-2023 [facility] of [facility]. National Score (1-100), lower number is lower risk 72 [facility] Never smoker. [facility]. Note 03-15-2023 Telephone Encounter - Whitney Cage [...] Luz Maria Valdez documented in this encounter [facility] Progress note 03-14-2023 Note Date & Type Note Facility 03-14-2023 Note HNO ID: [id number] Author: Barron Martinez MD Service: ? Author Type: Physician Type: Progress Notes Filed: 03/14/2023 4:10 PM Note Text: Phone call. Reviewed labs. Hct normal, epo normal. Suspect prior erythrocytosis was secondary or hemoconcentrated. MPN pending. Will be in touch if JAK2 positive. 15 minute phone call Barron Martinez MD March 14, 2023 [facility] History of Present illness Narrative 03-14-2023 Barron [...] March 14, 2023 documented in this encounter [facility] Progress note 03-07-2023 Note Date & Type Note Facility 03-07-2023 Note HNO ID: [id number] Author: Barron Martinez MD Service: ? Author [...] which included preparing to see the patient, [id number] patient care, completing clinical documentation, obtaining and/or reviewing separately obtained history, performing a medically appropriate examination, counseling and educating the patient/family/caregiver, ordering medications, tests, or procedures, independently interpreting results (not separately reported), and communicating results to the patient/family/caregiver. Electronically Signed: Barron Martinez MD March 07, 2023 3:55 PM [facility] Note 02-22-2023 Telephone Encounter - Bree Nye - 02/22/2023 12:32 PM EDTTelephone Encounter - Whitney Cage - 02/21/2023 4:19 PM EDT Note Date & Type Note Facility 02-22-2023 Miscellaneous Notes Formattin g of this note might be different from the original. 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 [...] or prosecute any alcohol or drug abuse patient.[facility] the event this information is protected by the Federal Confidentiality of Alcohol and Drug Abuse Patient Records regulations: The Federal rules restrict any use of the information to criminally investigate or prosecute any alcohol or drug abuse patient.[facility] [facility] the event this information is protected by the Federal Confidentiality of Alcohol and Drug Abuse Patient Records regulations: The Federal rules restrict any use of the information to criminally investigate or prosecute any alcohol or drug abuse patient.[facility] Reason for Visit (unrecogniz ed section and content) Reason Comments Established Patient Reason Comments AVS 03/14/23 Care Teams (unrecognized sec tion and content) INFORMATION SOURCE (unrecogn ized section and content) DATE CREATED AUTHOR AUTHOR'S ORGANIZ ATION 03/16/2023 [facility] DATE CREATED AUTHOR AUTHOR'S ORGANIZ ATION 05/04/2023 [facility] FOR RECORDS PERTAINING TO PATIENTS WHO ARE [...] BE BASED ON THE PRIMARY CLINICAL RECORDS. [facility]. provides no warranty or guarantee of the accuracy or completeness of information in this document.
[2023-05-14 18:29] LABS: Ferritin 151 ng/mL (8-252)
[2023-05-14 19:05] LABS: Hepatitis B Surface Antigen Non-Reactive (Nonreactive); Hepatitis C Antibody Non-Reactive (Nonreactive)
[2023-05-16 14:09] LABS: ANTINUCLEAR ANTIBODIES DIRECT Negative (Negative); Anti-Mitochondrial AB <20.0 Units (0.0-20.0); Anti-Smooth Muscle ABS 6 Units (0-19)
== END 2023-05-14 23:59 | disposition home or self-care (01) ==
LOC: MTLAB 15:12
PROVIDERS: PCP Physician Assistant; Referring Provider Internal Medicine Gastroenterology; Visit Provider Internal Medicine Gastroenterology
DX: R94.5 Abnormal results of liver function studies (principal)
CPT/HCPCS: 36415; 82728; 83516; 86038; 86803; 87340

== ENCOUNTER → 2023-06-10 | Outpatient (CLI) | payer MEDICARE, SELFPAY ==
--- NOTE | 2023-06-10 08:31 | US_ITS ---
STUDY: ABDOMINAL ULTRASOUND - RIGHT UPPER QUADRANT; ELASTOGRAPHY REASON FOR VISIT: Female, 67 years old. Fatty infiltration of the liver. TECHNIQUE: Ultrasound evaluation of the right upper quadrant was performed with real-time and static howard-scale imaging. Point quantification shear wave elastography was performed (Joobili). TECHNICAL QUALITY: Adequate. COMPARISON: Comparison is made with prior study dated March 05, 2023. FINDINGS: Liver: The liver measures 14 cm. There is increased echogenicity consistent with fatty infiltration. The bile ducts are within normal limits. There is hepatic color flow. The direction of portal flow is hepatopetal. There is an 8mm by 8mm by 6 mm echogenic nodule in the peripheral aspect of the left lobe of liver adjacent to the hemidiaphragm suggestive of a small hemangioma. Median liver stiffness measured 11.7 kPa. Gallbladder: Normal distended gallbladder. The gallbladder wall measures 2.5 mm. There is a negative sonographic Prajapati''s sign. There is no pericholecystic fluid. There are no gallstones. Common Bile Duct (C.B.D.): The common bile duct measures 2.3 mm. Pancreas: There is normal echogenicity of the visualized pancreas. There is no demonstrated pancreatic mass or cyst. Right Kidney: Normal size of the right kidney. The right kidney measures 8.7 cm x 5 cm x 5.5 cm. Normal renal cortex. The right cortex measures 1.1 cm. There is no demonstrated renal mass or cyst. There is no right hydronephrosis. US/ABD Limited w/ Elastography IMPRESSION: 1. Liver stiffness measures 11.7 kPa compatible with F2-F3 (Mild to moderate liver fibrosis) Metavir score. Electronically Signed: Manuel Lilly MD at 9:40 EST ,
[2023-06-10 10:24] LABS: AST(SGOT) 48 U/L (15-37); Alanine Aminotransfer ALT/SGPT 154 U/L (13-56); Albumin, Serum 3.7 g/dL (3.2-5.0); Alkaline Phosphatase 177 U/L (45-117); Bilirubin, Direct 0.39 mg/dL (0.00-0.30); Globulin 3.4 g/dL (2.2-4.2); Protein, Total 7.1 g/dL (6.4-8.2)
== END | disposition home or self-care (01) ==
PROVIDERS: PCP Physician Assistant; Referring Provider Internal Medicine Gastroenterology; Visit Provider Internal Medicine Gastroenterology
DX: K76.0 Fatty (change of) liver, not elsewhere classified (principal); R74.8 Abnormal levels of other serum enzymes
CPT/HCPCS: 36415; 76705; 76981; 80076

== ENCOUNTER → 2023-11-06 | Outpatient (CLI) | payer MEDICARE, SELFPAY ==
[2023-11-06 12:44] LABS: AST(SGOT) 30 U/L (15-37); Alanine Aminotransfer ALT/SGPT 39 U/L (13-56); Albumin, Serum 3.8 g/dL (3.2-5.0); Alkaline Phosphatase 135 U/L (45-117); Bilirubin, Direct 0.28 mg/dL (0.00-0.30); Cholesterol 179 mg/dL (200); Globulin 3.5 g/dL (2.2-4.2); High Density Lipoprotein 54 mg/dL; Protein, Total 7.3 g/dL (6.4-8.2); Triglycerides 171 mg/dL; Very Low Density Lipoprotein 34 mg/dL (5-40)
[2023-11-06 12:52] LABS: Hemoglobin A1c 5.6 % (3.8-5.6)
== END | disposition home or self-care (01) ==
LOC: MTLAB 11-14 14:34
PROVIDERS: PCP Physician Assistant; Referring Provider Internal Medicine Gastroenterology; Visit Provider Internal Medicine Gastroenterology
DX: K76.0 Fatty (change of) liver, not elsewhere classified (principal); E11.9 Type 2 diabetes mellitus without complications; R74.8 Abnormal levels of other serum enzymes
CPT/HCPCS: 36415; 80061; 80076; 83036

== ENCOUNTER → 2023-11-08 | Outpatient (CLI) | payer MEDICARE, SELFPAY ==
--- NOTE | 2023-11-08 09:22 | US_ITS ---
STUDY: ULTRASOUND BREAST - RIGHT REASON FOR EXAM: Female, 67 years old. Status post breast biopsy TECHNIQUE: Axial and longitudinal images of the RIGHT breast were performed with a high resolution ultrasound transducer. # OF IMAGES: 13 COMPARISON: None. FINDINGS: RIGHT Breast: Heterogeneous background echotexture. Next Multiple longitudinal and transverse ultrasound images of the lower outer quadrant of the right breast do not demonstrate a discrete solid or cystic mass.: US/Breast Limited Unilateral IMPRESSION: Normal right breast ultrasound. ASSESSMENT CATEGORY: BIRADS Category 1: Negative. A letter regarding these results will be sent to the patient by the facility within 30 days. Electronically Signed: Nestor Silverio MD at 12:06 EDT ,
== END | disposition home or self-care (01) ==
PROVIDERS: PCP Physician Assistant; Referring Provider Surgery; Visit Provider Surgery
DX: R92.8 Other abnormal and inconclusive findings on diagnostic imaging of breast (principal)
CPT/HCPCS: 76642

== ENCOUNTER → 2024-05-26 | Outpatient (CLI) | payer MEDICARE, SELFPAY ==
[2024-05-26 09:23] LABS: Erythrocyte Sedimentation Rate 5 mm/hr (0-30)
[2024-05-26 09:37] LABS: Vitamin B12 1208 pg/mL (211-911)
[2024-05-26 09:41] LABS: ALB/GLOB Ratio 1.2 RATIO (0.9-2.4); AST(SGOT) 16 U/L (15-37); Alanine Aminotransfer ALT/SGPT 28 U/L (13-56); Alkaline Phosphatase 131 U/L (45-117); Anion Gap 5 (5-15); BUN 11 mg/dL (7-18); CPK Total, Creatine Kinase 106 U/L (26-192); CRP < 2.90 mg/L (0.0-3.0); Calcium,Total 9.8 mg/dL (8.5-10.1); Chloride 106 mmol/L (98-107); Creatinine, Serum 0.74 mg/dL (0.55-1.02); EST Glomerular Filtration Rate 84 mL/min (>60); Est Glom Filt Rate - Afr Amer 101 mL/min (>60); Ferritin 163 ng/mL (8-252); Globulin 3.4 g/dL (2.2-4.2); Glucose 118 mg/dL (74-106); Iron 145 ug/dL (50-170); Iron Binding Capacity,Total 330 ug/dL (250-450); LDH 200 U/L (84-246); Potassium 3.9 mmol/L (3.5-5.1); Protein, Total 7.4 g/dL (6.4-8.2); Sodium Level 141 mmol/L (136-145)
[2024-05-28 11:07] LABS: Anti-Centromere B Ab <0.2 AI (0.0-0.9); Anti-Chromatin <0.2 AI (0.0-0.9); Anti-Jo <0.2 AI (0.0-0.9); Anti-Mitochondrial AB <20.0 Units (0.0-20.0); Anti-Scleroderma-70 AB <0.2 AI (0.0-0.9); Anti-dsDNA Ab 1 IU/mL (0-9); RNP Ab <0.2 AI (0.0-0.9); SJOGREN'S Anti-SS-A test < 0.2 AI (0.0-0.9); SJOGREN'S Anti-SS-B test < 0.2 AI (0.0-0.9); Smith Ab <0.2 AI (0.0-0.9); Vitamin D 1,25-Dihydroxy 39.2 pg/mL (24.8-81.5)
[2024-05-29 07:08] LABS: Albumin 3.8 g/dL (2.9-4.4); Aldolase 4.8 U/L (3.3-10.3); Alpha-1-Globulins 0.2 g/dL (0.0-0.4); Alpha-2-Globulins 0.7 g/dL (0.4-1.0); Ceruloplasmin 22.5 mg/dL (19.0-39.0); Copper, Serum or Plasma 96 ug/dL (80-158); Cytoplasmic Ab (C-ANCA) <1:20 titer (Neg:<1:20); Endomysial Antibody IgA Negative (Negative); IgG, Quant 897 mg/dL (586-1602); Immunoglobulin A 155 mg/dL (87-352); Immunoglobulin E 31 IU/mL (6-495); Immunoglobulin G, Subclass 1 529 mg/dL (248-810); Immunoglobulin G, Subclass 2 283 mg/dL (130-555); Immunoglobulin G, Subclass 3 36 mg/dL (15-102); Immunoglobulin G, Subclass 4 26 mg/dL (2-96); Immunoglobulin M 117 mg/dL (26-217); PROEL- TOTAL PROTEIN 6.9 g/dL (6.0-8.5); Perinuclear Ab (P-ANCA) <1:20 titer (Neg:<1:20); t-Transglutaminase IgA <2 U/mL (0-3)
== END | disposition home or self-care (01) ==
LOC: LAB 08:34
PROVIDERS: PCP Physician Assistant; Referring Provider Internal Medicine Gastroenterology; Visit Provider Internal Medicine Gastroenterology
DX: K21.9 Gastro-esophageal reflux disease without esophagitis (principal); R74.8 Abnormal levels of other serum enzymes; D64.9 Anemia, unspecified
CPT/HCPCS: 36415; 80053; 82085; 82390; 82525; 82550; 82607; 82652; 82728; 82784; 82785; 82787; 83516; 83540; 83550; 83615; 84165; 85652; 86037; 86140; 86225; 86235; 86255; 86334

== ENCOUNTER → 2024-06-29 | Outpatient (CLI) | payer MEDICARE, SELFPAY ==
--- NOTE | 2024-06-29 07:48 | CT_ITS ---
EXAM: CT Abdomen and Pelvis Without Intravenous Contrast CLINICAL INDICATION: TECHNIQUE: Axial computed tomography images of the abdomen and pelvis without intravenous contrast. This CT exam was performed using one or more of the following dose reduction techniques: automated exposure control, adjustment of the mA and/or kV according to patient size, and/or use of iterative reconstruction technique. COMPARISON: No relevant prior studies available. FINDINGS: LUNG BASES: Partially visualized lung emphysema. No consolidation. ABDOMEN: LIVER: Hyperechoic lesion in left hepatic lobe described on ultrasound dated 06/10/2023 is not visualized on the current exam. If indicated, dedicated CT or MRI of the abdomen using liver mass protocol is recommended. GALLBLADDER AND BILE DUCTS: Unremarkable. No calcified stones. No ductal dilation. PANCREAS: Unremarkable. No ductal dilation. SPLEEN: Unremarkable. No splenomegaly. ADRENALS: Unremarkable. No mass. KIDNEYS AND URETERS: Unremarkable. No obstructing stones. No hydronephrosis. STOMACH AND BOWEL: Fecal retention in the colon consistent with constipation. No obstruction. No mucosal thickening. PELVIS: APPENDIX: No findings to suggest acute appendicitis. BLADDER: Unremarkable. No stones. REPRODUCTIVE: Unremarkable as visualized. ABDOMEN and PELVIS: INTRAPERITONEAL SPACE: Unremarkable. No free air. No significant fluid collection. BONES/JOINTS: Degenerative disc disease throughout the lumbar spine. Degenerative facet arthropathy throughout the lumbar spine, most prominent in the lower lumbar spine. No acute fracture. No dislocation. SOFT TISSUES: Unremarkable. VASCULATURE: Scattered calcified atherosclerotic disease of aorta. No abdominal aortic aneurysm. LYMPH NODES: Unremarkable. No enlarged lymph nodes. CT/Abdomen/Pelvis without Cont IMPRESSION: 1. Hyperechoic lesion in left hepatic lobe described on ultrasound dated 06/10 is not visualized on the current exam. If indicated, dedicated CT or MRI of the abdomen using liver mass protocol is bernardo mmended. 2. Fecal retention in the colon consistent with constipation. 3. Degenerative changes lumbar spine as described. Reading Location: [facility]
== END | disposition home or self-care (01) ==
LOC: CT 07:48
PROVIDERS: PCP Physician Assistant; Referring Provider Internal Medicine Gastroenterology; Visit Provider Internal Medicine Gastroenterology
DX: K76.89 Other specified diseases of liver (principal)
CPT/HCPCS: 74176

== ENCOUNTER → 2024-08-25 | Outpatient (CLI) | payer MEDICARE, SELFPAY ==
[2024-08-25 10:47] LABS: Erythrocyte Sedimentation Rate 4 mm/hr (0-30)
[2024-08-25 11:48] LABS: ALB/GLOB Ratio 1.7 RATIO (0.9-2.4); AST(SGOT) 32 U/L (<=31); Alanine Aminotransfer ALT/SGPT 37 U/L (<=34); Albumin, Serum 4.3 g/dL (3.4-4.8); Alkaline Phosphatase 131 U/L (35-104); Anion Gap 11 (5-15); BUN 13 mg/dL (4-19); BUN/Creat Ratio 19.8 RATIO (10-20); Calcium,Total 9.6 mg/dL (7.6-11.0); Carbon Dioxide 26.2 mmol/L (21.0-32.0); Chloride 103 mmol/L (98-108); Creatinine, Serum 0.66 mg/dL (0.70-1.20); EST Glomerular Filtration Rate 95 (>60); Globulin 2.5 g/dL (2.2-4.2); Glucose 119 mg/dL (70-99); Potassium 4.2 mmol/L (3.3-5.1); Protein, Total 6.7 g/dL (5.9-8.4); Sodium Level 140 mmol/L (133-145); Total Bilirubin 0.98 mg/dL (0.00-1.30)
[2024-08-25 11:56] LABS: CRP < 3.00 mg/L (0.0-3.0)
== END | disposition home or self-care (01) ==
LOC: LAB 09:57
PROVIDERS: PCP Physician Assistant; Referring Provider Internal Medicine Gastroenterology; Visit Provider Internal Medicine Gastroenterology
DX: K21.9 Gastro-esophageal reflux disease without esophagitis (principal); R74.8 Abnormal levels of other serum enzymes
CPT/HCPCS: 36415; 80053; 85652; 86140

== ENCOUNTER 2024-09-25 08:54 | Outpatient (CLI) | payer MEDICARE, SELFPAY ==
[2024-09-22 13:39] LABS: Platelet Count 226 K/mm3 (150-450)
[2024-09-22 13:53] LABS: International Normalized Ratio 0.9; Prothrombin Time (Protime)PT. 12.7 SECONDS (11.7-14.9)
[2024-09-22 13:54] LABS: Partial Thromboplast Time 27.7 Seconds (24.1-36.2)
[2024-09-25] VITALS (12 sets, daily range): BP systolic 121–149; BP diastolic 25–72; PULSE 61–85; RESP 14–20; O2SAT 95–100; BMI 23.5
[2024-09-25] MEDS: 0.9% Normal Saline (250mL Bag) 250 ML 15 ML IV (10:12)
[2024-09-25] MEDS: Midazolam 2 MG/2 ML Syringe IV (10:14)
[2024-09-25] MEDS: fentaNYL 100 MCG/2 ML Ampul IV (10:17)
[2024-09-25] MEDS: Lidocaine 2% (20 ml mdv) 20 ML Vial INFILT (10:22)
[2024-09-25 10:44] LABS: Pathology Sent to OSU SEE PATHOLOGY REPORT
== END 2024-09-25 23:59 | disposition home or self-care (01) ==
LOC: CT 08:56
PROVIDERS: PCP Physician Assistant; Referring Provider Internal Medicine Gastroenterology; Visit Provider Internal Medicine Gastroenterology
DX: K76.9 Liver disease, unspecified (principal); R74.8 Abnormal levels of other serum enzymes
CPT/HCPCS: 47000; 36415; 77012; 85049; 85610; 85730; 99156; A4216

== ENCOUNTER → 2024-11-11 | Outpatient (CLI) | payer MEDICARE, SELFPAY ==
--- NOTE | 2024-11-11 07:48 | US_ITS ---
PROCEDURE: ABD LIMITED W/ ELASTOGRAPHY REASON FOR EXAM: OCAMPO COMPARISON: None. TECHNIQUE: Right upper quadrant abdominal ultrasound. Annabelle ElastQ Imaging shear wave elastography for non-invasive assessment of liver tissue stiffness. Annabelle EPIQ Elite. FINDINGS: LIVER: Size: Unremarkable Length: 14 cm. Cm Echotexture: Diffusely echogenic suggesting fatty infiltration Contour: Normal Lesions: None identified Elastography: EQI Med: 9.8 kPa EQI Med Wagner: 1.79 m/s IQR/Med: 16 %* GALLBLADDER: Normal COMMON BILE DUCT: Normal measuring 4 mm . PANCREAS: Normal Visualized portions of the right kidney are unremarkable. No right upper quadrant ascites. US/ABD Limited w/ Elastography IMPRESSION: MODERATE HEPATIC FIBROSIS Fatty infiltration of the liver. Reference Values: SRU <1.37 m/s (5.7kPa): No to mild fibrosis 1.37 m/s - 2.2 m/s: Moderate to severe fibrosis >2.2 m/s (15kPa): Significant fibrosis / cirrhosis METAVIR Score F2 or higher: 1.34 m/s (5.7kPa) F3 or higher: 1.55 m/s (7.3kPa) F4: 1.80 m/s (10kPa) * If the IQR/Med is >30%, the variance in the measurements is a large and the a ccuracy of the measurement may be in question. Reading Location: [place] [id number]
== END | disposition home or self-care (01) ==
PROVIDERS: PCP Physician Assistant; Referring Provider Internal Medicine Gastroenterology; Visit Provider Internal Medicine Gastroenterology
DX: K75.81 Nonalcoholic steatohepatitis (NASH) (principal)
CPT/HCPCS: 76705; 76981